=== PATIENT | male | born 1935 | race Caucasian/White ===

== ENCOUNTER 2019-08-11 12:27 | Outpatient (CLI) | payer MEDICARE, MEDICAID, SELFPAY ==
--- NOTE | 2019-08-11 13:30 | XRR_ITS ---
PROCEDURE INFORMATION: Exam: XR Abdomen, 1 View Exam date and time: 08/11/2019 12:45 PM Age: 84 years old Clinical indication: Condition or disease; Kidney or ureter condition; Other: Bladder stone TECHNIQUE: Imaging protocol: XR of the abdomen. Views: Frontal supine view of the abdomen. 1 View. COMPARISON: No relevant prior studies available. FINDINGS: Gastrointestinal tract: Normal. No bowel dilation. Bones/joints: Unremarkable. There is a circumscribed a calcific density in the projection of the proximal collecting system the right kidney at the level of the right L2 transverse process measuring 12.5 mm. This finding likely represents a urinary tract stone. A phleboliths seen in the right lower pelvis XR/XR KUB [id number] IMPRESSION: No acute findings. Calcified stone proximal right renal collecting system.
== END 2019-08-11 12:28 | disposition home or self-care (01) ==
LOC: RAD 12:32
PROVIDERS: Visit Provider Urology
DX: N21.0 Calculus in bladder (principal); N20.0 Calculus of kidney
CPT/HCPCS: 74018; 81001

== ENCOUNTER → 2020-02-02 14:55 | Outpatient (BNVA) | payer MEDICARE, MEDICAID, SELFPAY | PROVIDERS: Visit Provider Urology | DX: N13.8 Other obstructive and reflux uropathy (principal); N40.1 Benign prostatic hyperplasia with lower urinary tract symptoms; R97.20 Elevated prostate specific antigen [PSA]; R39.89 Other symptoms and signs involving the genitourinary system | CPT/HCPCS: 81003 ==

== ENCOUNTER 2020-06-07 12:56 | Outpatient (CLI) | payer MEDICARE, MEDICAID, SELFPAY ==
--- NOTE | 2020-06-07 13:01 | XRR_ITS ---
PROCEDURE INFORMATION: Exam: XR Abdomen Exam date and time: 06/07/2020 1:20 PM Age: 85 years old Clinical indication: Condition or disease; Kidney or ureter condition; Calculus (stone) in ureter; Additional info: Stone follow up TECHNIQUE: Imaging protocol: XR of the abdomen. Views: Frontal supine view of the abdomen. 1 View. COMPARISON: 1. CR XR KUB [id number] 08/11/2019 12:40 PM 2. MT XR KUB [id number] 05/06/2018 8:31:22 AM FINDINGS: Gastrointestinal tract: Normal. No bowel dilation. Bones/joints: There is a 12 mm calcification projecting on the right L3 transverse process. This was previously seen in the periphery of the left side of the abdomen on the old radiograph from 05/06/2018 so that it is not a urinary tract calcification. Some phleboliths are present in the lower pelvis. No definite urinary calcifications are seen. XR/XR KUB [id number] IMPRESSION: 1. A non urinary tract 12 mm calcification projects on the right L3 transverse process. 2. No acute abnormalities are seen in the abdomen.
== END 2020-06-07 12:57 | disposition home or self-care (01) ==
LOC: RAD 12:59
PROVIDERS: Visit Provider Urology
DX: N21.0 Calculus in bladder (principal)
CPT/HCPCS: 74018; 81003

== ENCOUNTER → 2020-10-11 14:30 | Outpatient (BNVA) | payer MEDICARE, MEDICAID, SELFPAY | PROVIDERS: PCP Family Medicine; Visit Provider Urology | DX: N13.8 Other obstructive and reflux uropathy (principal); N40.1 Benign prostatic hyperplasia with lower urinary tract symptoms; C61 Malignant neoplasm of prostate; N21.0 Calculus in bladder; R97.20 Elevated prostate specific antigen [PSA] | CPT/HCPCS: 81003 ==

== ENCOUNTER 2021-01-10 13:20 | Outpatient (CLI) | payer MEDICARE, MEDICAID, SELFPAY | END 2021-01-10 13:21 | disposition home or self-care (01) | LOC: LAB 13:27 | PROVIDERS: PCP Family Medicine; Visit Provider Urology | DX: R97.20 Elevated prostate specific antigen [PSA] (principal) | CPT/HCPCS: 36415; 81003; 84153 ==

== ENCOUNTER 2021-01-23 08:48 | Outpatient (CLI) | payer MEDICARE, MEDICAID, SELFPAY ==
--- NOTE | 2021-01-23 09:20 | CT_ITS ---
WS: [id number] CT ABDOMEN AND PELVIS WITH AND WITHOUT CONTRAST HISTORY: PROSTATE CANCER TECHNIQUE: Unenhanced 5 mm axial imaging first performed through the abdomen. Post contrast imaging t hrough the abdomen and pelvis. Oral contrast has been provided. Sagittal and coronal reformats are s ubmitted. All CT scans at [facility] use at least one of these dose optimization techniques: automated exposure control; mA and/or kV adjustment per patient size (includes targeted exams where d ose is matched to clinical indication); or iterative reconstruction. CONTRAST: Omnipaque 300; 95 mL IV. DLP: 3271.06 mGy.cm COMPARISON: 03/04/2017 Emphysematous changes with atelectasis and scarring at the lung bases. No nodule or pneumonia. Heart size is normal. No pericardial effusion. No hiatal hernia. Liver, spleen, gallbladder, pancreas and adrenal glands are negative. Normal common bile duct and hightower creatic duct. Moderate atherosclerotic plaque within the aorta. No ascites. RIGHT kidney: Normal size kidney with mild perinephric stranding. No stone or solid mass. There are a few scattered hypodensities which are probably cysts. The largest in the mid kidney measures 10 mm. Normal size RIGHT ureter. LEFT kidney: Normal size kidney with perinephric stranding. Several small adjacent cysts in the lower kidney with the largest measuring 18 mm. No solid mass or obstruction. Normal ureter. Urinary bladder is well distended. There is a lobulated soft tissue mass at the base of the urinary b ladder which is contiguous with the prostate gland. Prostate extends over length of 7.0 cm x 4.5 x 5. 5 cm. The LEFT ureter enters through a soft tissue mass extending from the prostate gland but is not obstructing at this time. Retrocrural 7 mm lymph node. Numerous retroperitoneal lymph nodes are identified. Beginning at the le oliver of the renal veins bilateral paraaortic, aortocaval and retrocaval lymph nodes are identified. La rgest lymph node measures 16 mm and is just anterior to the distal IVC. Additional lymph nodes extend along the common and external iliac arteries. The largest lymph node measuring 17 mm along the RIGHT common iliac artery. Bilateral obturator lymph nodes measure up to 14 mm in diameter. Small deep ing uinal lymph nodes are less than a centimeter. No osteoblastic or osteolytic bone disease. 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 No ascites in the pelvis. CT/CT abdomen pelvis wo/w [id number] IMPRESSION: 1. Enlarged heterogeneous prostate gland measures 7.0 x 4.5 x 5.5 cm. 2. LEFT ureter courses through soft tissue invasion by the prostate gland but no obstruction at this time. 3. Extensive adenopathy within the abdomen and pelvis. Lymph nodes involve the retrocrural space, retroperitoneal, iliac chains, obturator and deep inguinal regions. 4. No osteoblastic changes noted within the bones. 5. No renal mass or obstruction. 6. Moderate atherosclerosis aorta.
--- NOTE | 2021-01-23 09:30 | NM_ITS ---
WS: [id number] NUCLEAR MEDICINE WHOLE BODY BONE SCAN HISTORY: PROSTATE CANCER COMPARISON: None available. TECHNIQUE: The patient was injected with 25.6 mCi of Technetium 99m HDP and serial whole-body scintig david have been performed with anterior and posterior images. Very minimal increased uptake in what is probably T1 or C7. No intense uptake throughout the axial [place]. Uptake within the spine and pelvis is normal. Mild degenerative changes at the AC joints and knee joints. Soft tissue and renal uptake. NM/NM bone scan whole body* [id number] IMPRESSION: No evidence for metastatic bone disease.
[2021-01-23 10:22] LABS: Blood Urea Nitrogen 14 mg/dL (8-23)
== END 2021-01-23 08:49 | disposition home or self-care (01) ==
LOC: RAD 08:55
PROVIDERS: PCP Family Medicine; Visit Provider Urology
DX: C61 Malignant neoplasm of prostate (principal); R97.20 Elevated prostate specific antigen [PSA]; N40.0 Benign prostatic hyperplasia without lower urinary tract symptoms; I70.0 Atherosclerosis of aorta
CPT/HCPCS: 74178; 78306; 82565; 84153; 84520; A9561

== ENCOUNTER 2021-08-01 14:13 | Outpatient (CLI) | payer MEDICARE, MEDICAID, SELFPAY | END 2021-08-01 14:14 | disposition home or self-care (01) | LOC: LAB 14:17 | PROVIDERS: PCP Family Medicine; Visit Provider Urology | DX: R97.20 Elevated prostate specific antigen [PSA] (principal); N40.1 Benign prostatic hyperplasia with lower urinary tract symptoms; N13.8 Other obstructive and reflux uropathy; R39.89 Other symptoms and signs involving the genitourinary system; C61 Malignant neoplasm of prostate | CPT/HCPCS: 36415; 81003; 84153; 99214 ==

== ENCOUNTER → 2021-08-18 09:25 | Outpatient (BNVA) | payer MEDICARE, MEDICAID, SELFPAY | PROVIDERS: PCP Family Medicine; Visit Provider Urology | DX: R97.20 Elevated prostate specific antigen [PSA] (principal); R39.89 Other symptoms and signs involving the genitourinary system | CPT/HCPCS: 55700; 88305; J1580 ==

== ENCOUNTER 2021-09-03 20:38 | Inpatient (IN) | payer MEDICARE, MEDICAID, SELFPAY ==
[2021-09-03 21:14] VITALS: BP 175/80; PULSE 76; RESP 18; TEMP 36.9; O2SAT 96; BMI 31.7
--- NOTE | 2021-09-03 22:47 | CTR_ITS ---
PROCEDURE INFORMATION: Exam: CT Abdomen And Pelvis Without Contrast Exam date and time: 09/03/2021 11:45 PM Age: 86 years old Clinical indication: Patient HX: C/O urinary retention; Additional info: Urinary retention, pelvic pain TECHNIQUE: Imaging protocol: Computed tomography of the abdomen and pelvis without contrast. Radiation optimization: All CT scans at this facility use at least one of these dose optimization techniques: automated exposure control; mA and/or kV adjustment per patient size (includes targeted exams where dose is matched to clinical indication); or iterative reconstruction. COMPARISON: CT abdomen pelvis wo/w [id number] 01/23/2021 10:32 AM RADIATION DOSE METRICS: Total DLP (mGy-cm): 1186.43 FINDINGS: Lungs: Bibasilar atelectasis. Heart: Small pericardial effusion measuring 9.5 mm in thickness. Liver: Normal. No mass. Gallbladder and bile ducts: Cholelithiasis. Pancreas: Normal. No ductal dilation. Spleen: Normal. No splenomegaly. Adrenal glands: Normal. No mass. Kidneys and ureters: Moderate to severe hydronephrosis and hydroureter with diffuse urinary bladder wall thickening and and enlarged prostate gland, perhaps reflecting sequelae of chronic outflow obstruction. Stomach and bowel: Unremarkable. No obstruction. No mucosal thickening. Appendix: No evidence of appendicitis. Intraperitoneal space: Unremarkable. No free air. No significant fluid collection. Vasculature: Unremarkable. No abdominal aortic aneurysm. Lymph nodes: Scattered prominent periaortic and retrocrural lymph nodes measuring up to 17 mm, nonspecific. Urinary bladder: Tse catheter in the urinary bladder. Reproductive: See Kidneys and ureters finding. Bones/joints: Unremarkable. No acute fracture. Soft tissues: Unremarkable. CT/CT kidney stone [id number] IMPRESSION: 1. Moderate to severe hydronephrosis and hydroureter with diffuse urinary bladder wall thickening and and enlarged prostate gland, perhaps reflecting sequelae of chronic outflow obstruction. 2. Tse catheter in the urinary bladder. 3. Scattered prominent periaortic and retrocrural lymph nodes measuring up to 17 mm, nonspecific. 4. Bibasilar atelectasis. 5. Small pericardial effusion measuring 9.5 mm in thickness. 6. Cholelithiasis.
[2021-09-03 23:07] LABS: Basophils # 0.1 10^3/uL (0.0-0.1); Basophils % 0.8 %; Eosinophils # 0.1 10^3/uL (0.0-0.8); Eosinophils % 1.4 %; Hematocrit 37.8 % (42.0-52.0); Hemoglobin 12.7 g/dL (11.7-16.6); Lymphocytes # 1.2 10^3/uL (0.8-4.8); Mean Corpuscular HGB Conc 33.6 g/dL (30.0-36.0); Mean Corpuscular Hemoglobin 31.8 pg (28.0-34.0); Mean Corpuscular Volume 94.5 fl (80-94); Mean Platelet Volume 8.6 fL (7.4-10.4); Monocytes # 0.6 10^3/uL (0.2-0.9); Monocytes % 9.2 %; Neutrophils # 4.46 10^3/uL (1.8-7.7); Neutrophils % 69.3 %; Nucleated Red Blood Cells % 0 %; Platelet Count 188 10^3/cmm (130-400); Red Cell Distribution Width 12.5 % (12.1-15.1); White Blood Count 6.4 10^3/uL (4.0-10.0)
[2021-09-03 23:11] LABS: Add Urine Microscopic? NO; Charge for UA Resulting for Rev
--- NOTE | 2021-09-03 23:12 | PC.NURSE ---
bladder scan done @ 2245 and shownt o have >[address] Dhillon notified and will place hou
--- NOTE | 2021-09-03 23:14 | PC.NURSE ---
ameya clamped @ 2306 due to 1000 ml return. provider notified and will unclamp @ 6268
[2021-09-03 23:16] LABS: Bilirubin Urine Neg (Negative); Blood Urine Neg (Negative); Glucose Urine UA Norm (Normal); Ketones Urine Negative (Negative); Leukocyte Esterase Urine Negative (Negative); Nitrate Urine Negative (Negative); Protein Urine Neg (Negative); Urine Appearance Clear (CLEAR); Urine Color Yellow (Yellow); Urobilinogen Urine Norm (Negative); pH Urine 5 (5-7)
[2021-09-03 23:32] LABS: Alanine Aminotransferase 10 U/L (0-41); Albumin Level 3.9 g/dL (3.5-5.2); Alkaline Phosphatase 88 IU/L (40-130); Anion Gap 24.1 (5-19); Aspartate Amino Transferase 9 U/L (0-40); Blood Urea Nitrogen 74 mg/dL (8-23); C Reactive Protein 14.1 mg/L (0.0-4.9); Calcium 8.6 mg/dL (8.5-10.5); Carbon Dioxide 14 mmol/L (22-29); Chloride 106 mmol/L (98-107); Globulin 3.5 g/dL (1.3-4.6); Glucose 104 mg/dL (65-115); Magnesium 2.5 mg/dL (1.7-2.3); Osmolality Calculated 308 mOsm/kg (285-295); Phosphorus 6.1 mg/dL (2.5-4.5); Potassium 6.1 mmol/L (3.5-5.1); Sodium 138 mmol/L (136-145); Total Bilirubin 0.5 mg/dL (0.15-1.2); Total Protein 7.4 g/dL (6.6-8.7)
[2021-09-04] VITALS (45 sets, daily range): BP systolic 133–197; BP diastolic 63–91; PULSE 65–97; RESP 14–24; TEMP 36.7–36.9; O2SAT 91–97
--- NOTE | 2021-09-04 00:09 | PC.NURSE ---
Patient's hou unclamped at midnight. Patient's bladder emptied 350mLs giving a total output of 1350.
--- NOTE | 2021-09-04 01:12 | ED_ITS ---
HPI - Male Genitourinary General: Chief complaint: Urogenital-Male Stated complaint: unable to urinate Time Seen by Provider: 09/03/21 22:29 Source: patient History of Present Illness: 86-year-old gentleman presents to the emergency department not feeling well. He notes that he has not been able to urinate since sometime yesterday. He has a history of prostate disease. He is noted increased leg swelling, and shortness of breath since yesterday as well. He denies fever. He has pelvic pain. MD Complaint: other Onset (ago): hour(s) Duration: constant Location: right flank, left flank and abdomen Relieving factors: none Exacerbating factors: none Associated symptoms: Reports nausea, swelling and urinary retention; Deny dysuria, fevers/chills, hematuria or vomiting Review of Systems Const: Denies: fever(s) Card: Denies: chest pain or palpitations Resp: Reports: dyspnea GI: Reports: nausea; Denies: vomiting : Denies: dysuria or hematuria Musc: Reports: back pain Neuro: Denies: headache(s) PFSH ED PFSH: Medical History Abnormal prostate exam Bladder calculus BPH with obstruction/lower urinary tract symptoms Elevated PSA HTN (hypertension) Hyperlipidemia Slow urinary stream Family History Father , at age 68 No problems noted. Mother , at age 85 No problems noted. Social History Smoking and tobacco status: former smoker Alcohol intake: never Adopted: No Caregiver/support person: No Household members: other Marital status: Single Current occupational status: retired History of recent travel: No Physical Exam Const: GENERAL APPEARANCE: cooperative and frail appearing (mildly) HENMT: COMMON NORMALS: normocephalic, atraumatic and Normal external nose present HEAD & SCALP: normocephalic and atraumatic FACE & SINUS: normal facial exam and face symmetric NOSE: Normal external nose present Eye: COMMON NORMALS: Equal, round and reactive pupils present and EOMs intact bilaterally PUPIL: Yes Equal, round and reactive pupils present Neck/C-Spine: GENERAL: Yes trachea midline Chest: CHEST: Yes Symmetrical chest wall rise Resp: COMMON NORMALS: normal respiratory effort, No use of accessory muscles and clear to auscultation bilaterally AUSCULTATION: clear to auscultation bilaterally Cardio: COMMON NORMALS: regular rate and regular rhythm RATE: regular rate RHYTHM: regular rhythm GI: COMMON NORMALS: Soft to palpation PALPATION: Yes Soft to palpation and Yes Tenderness to palpation present (GI) (suprapubic) : BLADDER/KIDNEY EXAM: Yes CVA tenderness bilateral Back/Pelvis: GENERAL BACK: Yes CVA tenderness Extremity: GENERAL: Yes edema (2+) Neuro: JOVANY COMA SCALE: document GCS findings [place] coma scale eye opening: Spontaneous [place] coma scale verbal response: Orientated [place] coma scale motor response: Obey commands [place] coma scale total score: 15 Course Vital Signs: Vital signs: Vital Signs Temperature 98.4 F 09/03/21 21:14 Pulse Rate 71 09/04/21 01:15 Respiratory Rate 18 09/03/21 21:14 Blood Pressure 179/91 09/04/21 01:15 Pulse Oximetry 97 09/04/21 01:15 MDM - Male Medical Decision Making Tse catheter is inserted, with 1000 mL out nearly immediately. It is clamped at that point. Following this, output has been good. CBC is normal. Creatinine is 8.9. It was 0.9 in February. His potassium is 6.1. He also has mild hypermagnesemia and hyperphosphatemia. His BUN is 74. He is given IV f luids. He is also given insulin, dextrose, and Kayexalate. He will be admitted for acute renal failure related to acute urinary retention and hyperkalemia. Hospitalist notified. Lab Data : 09/03/21 23:00 09/03/21 23:00 Radiology Impressions Abdomen/Pelvis CT 09/03/21 22:47 IMPRESSION: 1. Moderate to severe hydronephrosis and hydroureter with diffuse urinary bladder wall thickening and and enlarged prostate gland, perhaps reflecting sequelae of chronic outflow obstruction. 2. Tse catheter in the urinary bladder. 3. Scattered prominent periaortic and retrocrural lymph nodes measuring up to 17 mm, nonspecific. 4. Bibasilar atelectasis. 5. Small pericardial effusion measuring 9.5 mm in thickness. 6. Cholelithiasis. Laboratory Results WBC 6.4 10^3/uL (4.0-10.0) 09/03/21 23:00 RBC 4.00 10^6/uL (4.1-5.3) L 09/03/21 23:00 Hgb 12.7 g/dL (11.7-16.6) 09/03/21 23:00 Hct 37.8 % (42.0-52.0) L 09/03/21 23:00 MCV 94.5 fl (80-94) H 09/03/21 23:00 MCH 31.8 pg (28.0-34.0) 09/03/21 23:00 MCHC 33.6 g/dL (30.0-36.0) 09/03/21 23:00 RDW 12.5 % (12.1-15.1) 09/03/21 23:00 Plt Count 188 10^3/cmm (130-400) 09/03/21 23:00 MPV 8.6 fL (7.4-10.4) 09/03/21 23:00 Neut % (Auto) 69.3 % 09/03/21 23:00 Lymph % (Auto) 19.0 % 09/03/21 23:00 [place] % (Auto) 9.2 % 09/03/21 23:00 Eos % (Auto) 1.4 % 09/03/21 23:00 Baso % (Auto) 0.8 % 09/03/21 23:00 Neut # (Auto) 4.46 10^3/uL (1.8-7.7) 09/03/21 23:00 Lymph # (Auto) 1.2 10^3/uL (0.8-4.8) 09/03/21 23:00 [place] # (Auto) 0.6 10^3/uL (0.2-0.9) 09/03/21 23:00 Eos # (Auto) 0.1 10^3/uL (0.0-0.8) 09/03/21 23:00 Baso # (Auto) 0.1 10^3/uL (0.0-0.1) 09/03/21 23:00 Nucleated RBC % (auto) 0 % 09/03/21 23:00 Nucleated RBCs # 0.0 /100WBC 09/03/21 23:00 Sodium 138 mmol/L (136-145) 09/03/21 23:00 Potassium 6.1 mmol/L (3.5-5.1) H 09/03/21 23:00 Chloride 106 mmol/L (98-107) 09/03/21 23:00 Carbon Dioxide 14 mmol/L (22-29) L 09/03/21 23:00 Anion Gap 24.1 (5-19) H 09/03/21 23:00 BUN 74 mg/dL (8-23) H 09/03/21 23:00 Creatinine 8.9 mg/dL (0.7-1.2) H* 09/03/21 23:00 GFR Calculation Not Reportable 09/03/21 23:00 Glucose 104 mg/dL (65-115) 09/03/21 23:00 Calculated Osmolality 308 mOsm/kg (285-295) H 09/03/21 23:00 Calcium 8.6 mg/dL (8.5-10.5) 09/03/21 23:00 Phosphorus 6.1 mg/dL (2.5-4.5) H 09/03/21 23:00 Magnesium 2.5 mg/dL (1.7-2.3) H 09/03/21 23:00 Total Bilirubin 0.5 mg/dL (0.15-1.2) 09/03/21 23:00 AST 9 U/L (0-40) 09/03/21 23:00 ALT 10 U/L (0-41) 09/03/21 23:00 Alkaline Phosphatase 88 IU/L (40-130) 09/03/21 23:00 C-Reactive Protein 14.1 mg/L (0.0-4.9) H 09/03/21 23:00 Total Protein 7.4 g/dL (6.6-8.7) 09/03/21 23:00 Albumin 3.9 g/dL (3.5-5.2) 09/03/21 23:00 Globulin 3.5 g/dL (1.3-4.6) 09/03/21 23:00 Urine Color Yellow (Yellow) 09/03/21 23:00 Urine Appearance Clear (CLEAR) 09/03/21 23:00 Urine pH 5 (5-7) 09/03/21 23:00 Ur Specific [place] 1.020 (1.005-1.030) 09/03/21 23:00 Urine Protein Neg (Negative) 09/03/21 23:00 Urine Glucose (UA) Norm (Normal) 09/03/21 23:00 Urine Ketones Negative (Negative) 09/03/21 23:00 Urine Blood Neg (Negative) 09/03/21 23:00 Urine Nitrate Negative (Negative) 09/03/21 23:00 Urine Bilirubin Neg (Negative) 09/03/21 23:00 Urine Urobilinogen Norm mg/dL (Negative) 09/03/21 23:00 Ur Leukocyte Esterase Negative (Negative) 09/03/21 23:00 Discharge Plan Discharge Condition: Stable Prescriptions: No Action levofloxacin 500 mg tablet 500 mg PO DAILY Qty: 4 0RF Rx Instructions: Begin day before procedure diazepam 10 mg tablet 10 mg PO ONCE Qty: 1 0RF Rx Instructions: 1 hour before procedure oxycodone-acetaminophen [Percocet] 5-325 mg tablet 1 tab PO ONCE PRN (Reason: pain) 1 Days Qty: 1 0RF Rx Instructions: Take 1 hour before procedure losartan [Cozaar] 100 mg tablet 100 mg PO DAILY 0RF lovastatin 20 mg tablet 20 mg PO DAILY 0RF amlodipine 5 mg tablet 5 mg PO DAILY 0RF aspirin [Adult Low Dose Aspirin] 81 mg tablet,delayed release (DR/EC) 81 mg PO DAILY 0RF Hold Instructions: Dose Change Rx Instructions: on hold finasteride 5 mg tablet See Rx Instructions .ROUTE .COMPLEX Qty: 90 3RF Dose Instruction: TAKE 1 TABLET BY MOUTH DAILY Rx Instructions: TAKE 1 TABLET BY MOUTH DAILY Referrals: Luis Manuel Lawson MD [Primary Care Provider] - Coding Level of Care Code ED [employer] Le[employer] Broker for Chg Fwd Exam Comprehensive
--- NOTE | 2021-09-04 01:16 | ECG_ITS ---
[facility] Test Date: 2021-09-04 Pat Name: Marlon Fuentes Department: Room: Gender: Male Civil Preparedness Coordinator: : 1935 Requested By: Valente Patricia Order Number: [id number] Celestino MD: Fercho Dillard M.D. Measurements Intervals [place] Rate: 70 P: 66 IN: 170 QRS: -41 QRSD: 96 T: 62 QT: 372 QTc: 403 Interpretive Statements SINUS RHYTHM LEFT AXIS DEVIATION [QRS AXIS < -30] No previous ECG available for comparison Electronically Signed On 09-04-2021 8:08:17 CDT by Fercho Dillard M.D. [email or web address]
--- NOTE | 2021-09-04 01:16 | XRR_ITS ---
PROCEDURE INFORMATION: Exam: XR Chest Exam date and time: 09/04/2021 1:21 AM Age: 86 years old Clinical indication: Shortness of breath; Additional info: SOB TECHNIQUE: Imaging protocol: Radiologic exam of the chest. Views: 1 view. COMPARISON: CR Chest 2 views* [id number] 03/04/2017 1:36 PM FINDINGS: Lungs: There are normal lung volumes without interstitial or airspace opacities. Pleural spaces: There are no pleural effusions or pneumothorax. Heart/Mediastinum: The heart size is normal. There is a mildly tortuous thoracic aorta. The trachea is in the midline. Bones/joints: No acute abnormalities. Small degenerative osteophytes are seen throughout the thoracic spine. XR/XR chest 1V portable [id number] IMPRESSION: No chest radiographic evidence of acute cardiopulmonary disease.
[2021-09-04] MEDS: sodium chloride 0.9% 1,000 ML 999 ML IV (01:56)
[2021-09-04] MEDS: dextrose 50% syringe 50 mL IVP ×2 (02:04→17:44)
[2021-09-04] MEDS: insulin regular-human 100 units/1 mL 10 UNIT IVP (02:04)
[2021-09-04] MEDS: sodium polystyrene sulfonate 15 gm/60 mL Btl PO ×2 (02:27→17:45)
--- NOTE | 2021-09-04 03:09 | PC.NURSE ---
Pt assisted with washing his feet, which were covered in mud.
[2021-09-04] MEDS: hyDRALAzine 20 mg/mL INJ 1 mL 5 MG IVP (04:08)
[2021-09-04] MEDS: sodium chloride 0.9% 1,000 ML 75 ML IV (04:08)
[2021-09-04] MEDS: amlodipine 5 mg Tablet PO (04:08)
[2021-09-04] MEDS: heparin 5,000 unit/mL INJ 1 mL 5000 UNIT SUBCUT ×2 (04:08→14:41)
--- NOTE | 2021-09-04 05:19 | P.HP_ITS ---
Providers/Chief Complaint Admitting Physician: Cait Lopez MD Primary Care Provider: Luis Manuel Lawson MD Chief Complaint: unable to urinate History of Present Illness Marlon Fuentes is a 86 year old male with a past medical history of hypertension, recently diagnosed invasive prostatic adenocarcinoma after TRUSP/biopsy on 08/18/21 presenting today with inability to pass urine since 2 days. States that he last passed urine at 2 PM on Saturday. He denies having had any urinary pro blems before then. Denies any hesitancy, dysuria, blood in urine. However patient does appear to be a poor historian overall denying all problems prior to Saturday. Denies any abdominal pain. Tse catheter was placed in the emergency room and immediately drained 1300 cc urine. He was noted to have ANTONIO a creatinine at 9.8 and hyperkalemia with a potassium of 6. He has received insulin dextrose and Kayexalate in the ED and has had A few bowel movements thereafter. Denies any fever chills chest pain dyspnea or palpitations. Review of Systems General: Reports: 10 or more systems reviewed and unremarkable except in HPI and below Const: Denies: fever(s), chills or body aches Eyes: Denies: change in vision, blurry vision or photophobia ENMT: Reports: hoarseness; Denies: throat pain, enlarged tonsils, odynophagia or nasal congestion Card: Denies: chest pain, palpitations, irregular heart rhythm, edema, swelling of feet/ankles, lightheadedness, pre-syncope, dyspnea on exertion or orthopnea Resp: Denies: dyspnea, productive cough, non-productive cough, wheezing, stridor, pain on inspiration, change in phlegm color, hemoptysis or chest congestion GI: Denies: abdominal pain, nausea, vomiting, hematemesis, coffee ground emesi s, dysphagia, heartburn, diarrhea, constipation, GI cramping, change in stool character, hematochezia or melena : Denies: flank pain, dysuria, urinary frequency, urinary urgency, urinary hesitancy or hematuria Musc: Denies: neck pain, back pain, extremity pain, joint swelling, joint warmth or deformity Neuro: Denies: headache(s), numbness in extremities, weakness in extremities, sensory changes, difficulty walking, frequent falls, dizziness, vertigo, behavioral changes, Slurred speech present or seizure-like activity Psych: Denies: anxiety, depression, suicidal ideation or homicidal ideation Endo: Denies: polyuria, polydipsia, tired all the time, cold intolerance or hot flashes Lewis/Lymph: Denies: easy bruising or easy bleeding Medications/Allergies Home Medications Medication Instructions Recorded Confirmed Last Taken Type amlodipine 5 mg tablet 5 mg PO DAILY 08/11/19 08/18/21 Unknown History losartan 100 mg tablet (Cozaar) 100 mg PO DAILY 08/11/19 08/18/21 Unknown History lovastatin 20 mg tablet 20 mg PO DAILY 08/11/19 08/18/21 Unknown History finasteride 5 mg tablet See Rx Instructions .ROUTE 09/30/20 08/18/21 Unknown Rx .COMPLEX #90 tab diazepam 10 mg tablet 10 mg PO ONCE #1 tab 08/01/21 08/18/21 Unknown Rx levofloxacin 500 mg tablet 500 mg PO DAILY #4 tab 08/01/21 08/18/21 Unknown Rx oxycodone-acetaminophen 5 mg-325 1 tab PO ONCE PRN 1 Days #1 tab 08/01/21 08/18/21 Unknown Rx mg tablet (Percocet) aspirin 81 mg tablet,delayed 81 mg PO DAILY 08/18/21 08/18/21 Unknown History release (Adult Low Dose Aspirin) Allergies Allergy/AdvReac Type Severity Reaction Status Date / Time No Known Allergies Allergy Unverified 08/18/21 09:43 PFSH Acute PFSH: Medical History Abnormal prostate exam Bladder calculus BPH with obstruction/lower urinary tract symptoms Elevated PSA HTN (hypertension) Hyperlipidemia Slow urinary stream Family History Father , at age 68 No problems noted. Mother , at age 85 No problems noted. Social History Smoking and tobacco status: former smoker Alcohol intake: never Adopted: No Caregiver/support person: No Household members: other Marital status: Single Current occupational status: retired History of recent travel: No Vitals/I&O/Wt Last Vital Signs Temp 98.3 F 09/04/21 02:40 Pulse 73 09/04/21 05:00 Resp 21 H 09/04/21 05:00 BP 180/75 09/04/21 05:00 Pulse Ox 96 09/04/21 05:00 09/03/21 09/03/21 09/04/21 14:59 22:59 06:59 Intake Total 1000 / 1000 Output Total 600 / 600 Balance 400 / 400 Weight last 48 hrs Weight 96.479 kg Weight 97.432 kg Physical Exam Narrative: GEN: Awake, alert and oriented, no acute distress CVS: S1S2 N RS: CTA B/L all areas Abd: Soft, nt/nd , bs+ ACLS SPECIALIST: no focal neuro deficits ext: mild LE edema Urinary Catheter Management: Tse Latex Free: Cath Placed During This Visit: yes Reason for Continuing Indwelling Catheter: Acute Urinary Retention or Obstruction Urinary Catheter Date of Insertion: 09/03/21 Urinary Catheter Time of Insertion: 23:00 Data : 09/03/21 23:00 09/04/21 05:20 Other Labs: Radiology Impressions Abdomen/Pelvis CT 09/03/21 22:47 IMPRESSION: 1. Moderate to severe hydronephrosis and hydroureter with diffuse urinary bladder wall thickening and and enlarged prostate gland, perhaps reflecting sequelae of chronic outflow obstruction. 2. Tse catheter in the urinary bladder. 3. Scattered prominent periaortic and retrocrural lymph nodes measuring up to 17 mm, nonspecific. 4. Bibasilar atelectasis. 5. Small pericardial effusion measuring 9.5 mm in thickness. 6. Cholelithiasis. Chest X-Ray 09/04/21 01:16 IMPRESSION: No chest radiographic evidence of acute cardiopulmonary disease. Laboratory Results WBC 6.4 10^3/uL (4.0-10.0) 09/03/21 23:00 RBC 4.00 10^6/uL (4.1-5.3) L 09/03/21 23:00 Hgb 12.7 g/dL (11.7-16.6) 09/03/21 23:00 Hct 37.8 % (42.0-52.0) L 09/03/21 23:00 MCV 94.5 fl (80-94) H 09/03/21 23:00 MCH 31.8 pg (28.0-34.0) 09/03/21 23:00 MCHC 33.6 g/dL (30.0-36.0) 09/03/21 23:00 RDW 12.5 % (12.1-15.1) 09/03/21 23:00 Plt Count 188 10^3/cmm (130-400) 09/03/21 23:00 MPV 8.6 fL (7.4-10.4) 09/03/21 23:00 Neut % (Auto) 69.3 % 09/03/21 23:00 Lymph % (Auto) 19.0 % 09/03/21 23:00 Esmeralda % (Auto) 9.2 % 09/03/21 23:00 Eos % (Auto) 1.4 % 09/03/21 23:00 Baso % (Auto) 0.8 % 09/03/21 23:00 Neut # (Auto) 4.46 10^3/uL (1.8-7.7) 09/03/21 23:00 Lymph # (Auto) 1.2 10^3/uL (0.8-4.8) 09/03/21 23:00 Esmeralda # (Auto) 0.6 10^3/uL (0.2-0.9) 09/03/21 23:00 Eos # (Auto) 0.1 10^3/uL (0.0-0.8) 09/03/21 23:00 Baso # (Auto) 0.1 10^3/uL (0.0-0.1) 09/03/21 23:00 Nucleated RBC % (auto) 0 % 09/03/21 23:00 Nucleated RBCs # 0.0 /100WBC 09/03/21 23:00 Sodium 140 mmol/L (136-145) 09/04/21 05:20 Potassium 5.1 mmol/L (3.5-5.1) 09/04/21 05:20 Chloride 111 mmol/L (98-107) H 09/04/21 05:20 Carbon Dioxide 15 mmol/L (22-29) L 09/04/21 05:20 Anion Gap 19.1 (5-19) H 09/04/21 05:20 BUN 64 mg/dL (8-23) H 09/04/21 05:20 Creatinine 6.8 mg/dL (0.7-1.2) H* 09/04/21 05:20 GFR Calculation Not Reportable 09/04/21 05:20 Glucose 84 mg/dL (65-115) 09/04/21 05:20 Calculated Osmolality 308 mOsm/kg (285-295) H 09/04/21 05:20 Calcium 8.0 mg/dL (8.5-10.5) L 09/04/21 05:20 Phosphorus 6.1 mg/dL (2.5-4.5) H 09/03/21 23:00 Magnesium 2.5 mg/dL (1.7-2.3) H 09/03/21 23:00 Total Bilirubin 0.5 mg/dL (0.15-1.2) 09/04/21 05:20 AST 9 U/L (0-40) 09/04/21 05:20 ALT 10 U/L (0-41) 09/04/21 05:20 Alkaline Phosphatase 84 IU/L (40-130) 09/04/21 05:20 C-Reactive Protein 14.1 mg/L (0.0-4.9) H 09/03/21 23:00 Total Protein 6.8 g/dL (6.6-8.7) 09/04/21 05:20 Albumin 3.6 g/dL (3.5-5.2) 09/04/21 05:20 Globulin 3.2 g/dL (1.3-4.6) 09/04/21 05:20 Urine Color Yellow (Yellow) 09/03/21 23:00 Urine Appearance Clear (CLEAR) 09/03/21 23:00 Urine pH 5 (5-7) 09/03/21 23:00 Ur Specific [place] 1.020 (1.005-1.030) 09/03/21 23:00 Urine Protein Neg (Negative) 09/03/21 23:00 Urine Glucose (UA) Norm (Normal) 09/03/21 23:00 Urine Ketones Negative (Negative) 09/03/21 23:00 Urine Blood Neg (Negative) 09/03/21 23:00 Urine Nitrate Negative (Negative) 09/03/21 23:00 Urine Bilirubin Neg (Negative) 09/03/21 23:00 Urine Urobilinogen Norm mg/dL (Negative) 09/03/21 23:00 Ur Leukocyte Esterase Negative (Negative) 09/03/21 23:00 A&P Assessment and plan (1) ANTONIO (acute kidney injury): Status: Acute (2) Prostate cancer: Status: Acute (3) Hyperkalemia: Status: Acute Plan 86-year-old male with recently diagnosed prostate cancer presenting today with acute urinary obstruction, acute kidney injury and hyperkalemia. Suspect that acute kidney injury with creatinine >9 is related to bladder outlet obstruction from enlarged prostate. Tse placed in the ER, 1300 cc urine obtained. Will keep Tse in place, gentle IV hydration with normal saline at 50 cc an hour, closely monitor for signs of fluid overload. Monitor I/O CT abdomen with evidence of hydronephrosis and hydroureter. No obstructing stones. Received insulin dextrose, Kayexalate in the ER for hyperkalemia with potassium of 6.0. Will repeat at 5 AM. Hyperkalemia most likely related to acute kidney injury. No EKG changes currently, will continue monitoring on telemetry. Uncontrolled hypertension: Hydralazine 5 mg IV push and as needed labetalol ordered. Increase amlodipine to 10 mg p.o. daily. Holding losartan until ANTONIO and hyperkalemia resolved. Attestations Medical Necessity Statement*: Anticipate greater than 2 midnight admission for evaluation and management of acute kidney injury, hyperkalemia and uncontrolled hypertension. 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
--- NOTE | 2021-09-04 06:00 | PC.NURSE ---
Pt appears to be dark complected but pale/sallow.
[2021-09-04 06:01] LABS: Alanine Aminotransferase 10 U/L (0-41); Albumin Level 3.6 g/dL (3.5-5.2); Alkaline Phosphatase 84 IU/L (40-130); Anion Gap 19.1 (5-19); Aspartate Amino Transferase 9 U/L (0-40); Blood Urea Nitrogen 64 mg/dL (8-23); Carbon Dioxide 15 mmol/L (22-29); Chloride 111 mmol/L (98-107); Globulin 3.2 g/dL (1.3-4.6); Glucose 84 mg/dL (65-115); Osmolality Calculated 308 mOsm/kg (285-295); Potassium 5.1 mmol/L (3.5-5.1); Sodium 140 mmol/L (136-145); Total Bilirubin 0.5 mg/dL (0.15-1.2); Total Protein 6.8 g/dL (6.6-8.7)
--- NOTE | 2021-09-04 06:28 | PC.NURSE ---
ED output from catheter not documented
[2021-09-04] MEDS: finasteride 5 mg Tablet PO (09:21)
[2021-09-04] MEDS: amlodipine 10 mg Tablet PO (09:21)
[2021-09-04] MEDS: pantoprazole DR 40 mg Tablet PO (09:21)
[2021-09-04] MEDS: aspirin 81 mg EC Tablet PO (09:21)
[2021-09-04] MEDS: atorvastatin 40 mg Tablet 20 MG PO (09:21)
--- NOTE | 2021-09-04 09:41 | PC.CHAP ---
Pastoral Care Encounter/Spiritual Assessment Type of Contact [] Declined band splitter visit [] Patient/Family/Request visit [] Outpatient visit [] Follow-up visit [] Physician referral [] Code/Alert [x] Routine visit [] Staff referral [] Actively dying [x] Patient sleeping [] Family support [] [] Out of room [] Palliative care [] [] Receiving care in room [] Pre-surgical visit [] Trauma [] Long length of stay [x] ICU visit [] Other: Relational/Emotional Strength [] Patient feels connected with others/family/visitors/staff [] Distress [] Loneliness/isolation [] Abandonment Spirituality of Patient [] Person of Cherry [] Attends Confucianist of their Cherry [] Believes in Prayer [] Reads Bible or Episcopalian materials [] There are Spiritual issues to be addressed Railroad Dining Car Stewardess Interventions [x] Prayer [] Active listening [] Non-anxious presence [] Spiritual/emotional support [] Crisis/trauma care [] Spiritual counseling [] Bereavement support [] Provided bereavement packet [] Provided Bible/devotional materials [] Provided toy/stuffed animal, coloring book to patient or family member [] Provided Communion [] Anointing/[place] [] Salvation [x] Completed spiritual assessment [] Other: Impact on Illness or Injury [] Angry [] Fearful [] Anxious [] Often cries [] Exhaustion [] Unable to work [] Unable to attend religious [] Unable to walk/stand [] Unable to read [] Unable to drive [] Unable to eat/drink [] Unable to sleep [] Unable to be with family [] Patient intubated [] Other: Summary Time spent with patient
--- NOTE | 2021-09-04 10:03 | PM.MISC ---
Miscellaneous Note Purpose of Documentation: Mini Progress Note Note: Patient has been hemodynamically stable overnight. Saturating 96% on room air. Creatinine this morning 6.8. Improved from 8.3. Tse draining freely. 1200 urine output since admission. Continue gentle IV hydration Check BMP, VBG in afternoon. Rest of management as per admission HnP document.
[2021-09-04] MEDS: sodium bicarbonate 650 mg Tablet PO ×2 (16:31→20:30)
[2021-09-04 16:34] LABS: Anion Gap 17.5 (5-19); Blood Urea Nitrogen 57 mg/dL (8-23); Calcium 7.9 mg/dL (8.5-10.5); Carbon Dioxide 16 mmol/L (22-29); Chloride 113 mmol/L (98-107); Glucose 108 mg/dL (65-115); Osmolality Calculated 308 mOsm/kg (285-295); Potassium 5.5 mmol/L (3.5-5.1); Sodium 141 mmol/L (136-145)
[2021-09-04 16:36] LABS: Base Excess VBG -10.2 mmol/L (-3.0-3.0); Blood Gas Sample Type Arterial; HCO3 VBG 15.1 mmol/L (24-28); PCO2 VBG 30.9 mmHg (41-51); PO2 VBG 61.3 mmHg (25-40); Venous Blood Gas Hematocrit 36.5 % (42-52)
--- NOTE | 2021-09-04 17:23 | P.CONIM_ITS ---
Providers/Reason For Consult Consulting Physician/Specialty*: Urology/Bond Reason for Consult*: Urinary retention/renal failure Requesting Physician: Dr. 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 For years he refused prostate biopsy but more recently elected to do so after his PSA had increased to almost 350 and a fairly rapid rate. Prostate biopsy was performed on 08/18/2021 and demonstrated large volume Evelyn 4+3, 3+4 throughout the prostate. 2 days prior to his admission he developed difficulty voiding and was only able to dribble a small amount by the time he came in. Catheter was placed in the emergency department yielding 1300 cc. Creatinine was found to be elevated at 8.9. CT scan: Bilateral hydronephrosis, thickened bladder wall, and thickening of the posterior bladder wall near the trigone. Hydroureter extended down to the UVJ bilaterally. CT scan also demonstrated significant pelvic lymphadenopathy in the obturator fossa area as well as Ultib ro periaortic nodes. Admitted for further evaluation and treatment. Since admission he has experienced significant diuresis as well as improving creatinine. Creatinine has decreased to 4.9 as of 09/04/2021. Alkaline phosphatase on admission was 88. Review of Systems Const: Reports: malaise; Denies: fever(s) or chills Eyes: Denies: eye discharge or eye redness ENMT: Denies: hoarseness Card: Reports: edema; Denies: chest pain Resp: Denies: productive cough or wheezing : Reports: difficulty urinating (Profound urinary retention); Denies: flank pain Musc: Denies: back pain Skin/Breast: Denies: erythema or jaundice Neuro: Denies: confusion or behavioral changes Psych: Denies: anxiety or depression Endo: Denies: polyuria or flushing Lewis/Lymph: Denies: easy bruising or easy bleeding All/Imm: Denies: urticaria or throat swelling Medications/Allergies Home Medications Medication Instructions Recorded Confirmed Last Taken Type amlodipine 5 mg tablet 5 mg PO BEDTIME 08/11/19 09/04/21 Unknown History losartan 100 mg tablet (Cozaar) 100 mg PO BEDTIME 08/11/19 09/04/21 Unknown Hi story lovastatin 20 mg tablet 20 mg PO BEDTIME 08/11/19 09/04/21 Unknown History aspirin 81 mg tablet,delayed 81 mg PO QAM 08/18/21 09/04/21 Unknown History release (Adult Low Dose Aspirin) finasteride 5 mg tablet 5 mg PO QAM 09/04/21 09/04/21 Unknown History Allergies Allergy/AdvReac Type Severity Reaction Status Date / Time No Known Allergies Allergy Verified 09/04/21 08:17 Current Medications Generic Name Dose Route Start Last Admin Trade Name Freq PRN Reason Stop Dose Admin Amlodipine Besylate 10 mg 09/04/21 09:00 09/04/21 09:21 Amlodipine 10 Mg Tablet PO 10 mg DAILY NEDA Administration Aspirin 81 mg 09/04/21 09:00 09/04/21 09:21 Aspirin 81 Mg Ec Tablet PO 81 mg DAILY NEDA Administration Atorvastatin Calcium 20 mg 09/04/21 09:00 09/04/21 09:21 Atorvastatin 40 Mg Tablet PO 20 mg DAILY NEDA Administration Finasteride 5 mg 09/04/21 09:00 09/04/21 09:21 Finasteride 5 Mg Tablet PO 5 mg DAILY NEDA Administration Heparin Sodium (Porcine) 5,000 unit 09/04/21 03:30 09/05/21 03:47 Heparin 5,000 Unit/Ml Inj 1 Ml SUBCUT 5,000 unit Q12H NEDA Administration Sodium Chloride 1,000 mls @ 50 mls/hr 09/04/21 03:15 09/05/21 03:48 Sodium Chloride 0.9% IV 50 mls/hr .Q20H NEDA Administration Pantoprazole Sodium 40 mg 09/04/21 09:00 09/04/21 09:[address] 40 Mg Tablet PO 40 mg DAILY NEDA Administration Sodium Bicarbonate 650 mg 09/04/21 21:00 09/04/21 20:30 Sodium Bicarbonate 650 Mg Tablet PO 650 mg QID NEDA Administration PFSH Acute PFSH: Medical History Abnormal prostate exam Bladder calculus BPH with obstruction/lower urinary tract symptoms Elevated PSA HTN (hypertension) Hyperlipidemia Slow urinary stream Family History Father , at age 68 No problems noted. Mother , at age 85 No problems noted. Social History Smoking and tobacco status: former smoker Alcohol intake: never Adopted: No Caregiver/support person: No Household members: other Marital status: Single Current occupational status: retired History of recent travel: No Vitals/I&O/Wt Last Vital Signs Temp 98.6 F 09/05/21 04:00 Pulse 59 L 09/05/21 06:00 Resp 17 09/05/21 04:00 BP 182/70 09/05/21 04:00 Pulse Ox 95 09/05/21 04:00 09/04/21 09/05/21 09/05/21 22:59 06:59 14:59 Intake Total 663.85 / 890.10 364.167 / 1254.267 Output Total 400 / 1075 800 / 1875 Balance 263.85 / -184.90 -435.833 / -620.733 Weight last 48 hrs Weight 223 lb 1.6 oz Weight 212 lb 11.2 oz Weight 214 lb 12.8 oz Physical Exam Const: COMMON NORMALS: no acute distress, alert and well nourished GENERAL APPEARANCE: well kempt and well developed ORIENTATION/CONSCIOUSNESS: not confused HENMT: COMMON NORMALS: normocephalic and atraumatic HEAD & SCALP: normocephalic and atraumatic Eye: COMMON NORMALS: conjunctivae normal and no scleral icterus CONJUNCTIVA: Yes conjunctivae normal Neck/C-Spine: COMMON NORMALS: full ROM GENERAL: Yes normal visual inspection Lymph: OTHER: No palpable lymphadenopathy Resp: COMMON NORMALS: normal respiratory effort EFFORT & INSPECTION: No labored and No Actively coughing Cardio: COMMON NORMALS: regular rate and regular rhythm RATE: regular rate RHYTHM: regular rhythm GI: COMMON NORMALS: Normal to inspection, nondistended, normoactive bowel sounds present and Soft to palpation PALPATION: Yes Soft to palpation : COMMON NORMALS: Yes no CVA tenderness, Yes normal external exam, Yes Testes normal and Yes scrotum normal BLADDER/KIDNEY EXAM: Yes no CVA tenderness Back/Pelvis: COMMON NORMALS: no CVA tenderness Extremity: NARRATIVE EXTREMITY EXAM: Lower extremity pitting edema apparently improved Neuro: COMMON NORMALS: no focal motor deficits SENSORIUM/ORIENTATION: Yes alert Psych: COMMON NORMALS: mental status grossly normal APPEARANCE: Yes grossly normal and Yes well kempt ATTITUDE: Yes calm and Yes engaged Skin: COMMON NORMALS: no rashes or lesions noted and no jaundice GENERAL SKIN EXAM: no rashes or lesions noted Urinary Catheter Management: Tse Latex Free: Cath Placed During This Visit: yes Reason for Continuing Indwelling Catheter: Acute Urinary Retention or Obstruction Urinary Catheter Date of Insertion: 09/03/21 Urinary Catheter Time of Insertion: 23:00 Data : 09/05/21 05:00 09/05/21 05:00 CT Abd/Pel: My impression: I think there is actually extensive lymphadenopathy including bilateral large lymph nodes in the obturator space. Significant lymphadenopathy extending along periaortic chain at least up to the renal vessels. A&P Assessment and plan (1) Obstructive uropathy: Secondary to bladder outlet obstruction. Given the substantial reduction in creatinine so far with Tse catheter placement is only treatment I do not think that there is in addition bilateral ureteral obstruction. 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 Status: Acute (3) BPH with obstruction/lower urinary tract symptoms: Status: Acute Plan 1. Continue Tse cath for 2 weeks and then voiding trial, SCIC training as outpatient in clinic. 2. 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 Start BICALUTAMIDE Coding Level of Care Code Acute Power Generation Technician for [facility] Diagnoses BPH with obstruction/lower urinary tract symptoms N40.1; N13.8 Obstructive uropathy N13.9 Prostate cancer metastatic to intrapelvic lymph node C61; C77.5
[2021-09-04] MEDS: calcium gluconate 0.9% NaCL 1 GM/50 ML PREMIX IV (17:44)
[2021-09-04] MEDS: insulin regular-human 10 UNIT in SYRINGE 1 EACH IVP (17:45)
--- NOTE | 2021-09-04 19:00 | PC.NURSE ---
Bedside report given to SUNITHA Barahona at this time.
--- NOTE | 2021-09-04 19:42 | PM.CONSULT ---
Providers/Reason For Consult Consulting Physician/Specialty*: Ayaka An DO, telenephrology Reason for Consult*: Acute kidney injury Attending Physician: Agnes Zayas MD Primary Care Provider: Luis Manuel Lawson MD History of Present Illness History of Present Illness Marlon Fuentes is a 86 year old male presenting with chief complaint of unable to urinate. Recent diagnosis prostate cancer. TRUSP/biopsy 08/18/21 Tse placed in ER 1300 ml in bladder. Medications/Allergies Home Medications Medication Instructions Recorded Confirmed Last Taken Type amlodipine 5 mg tablet 5 mg PO BEDTIME 08/11/19 09/04/21 Unknown History losartan 100 mg tablet (Cozaar) 100 mg PO BEDTIME 08/11/19 09/04/21 Unknown History lovastatin 20 mg tablet 20 mg PO BEDTIME 08/11/19 09/04/21 Unknown History aspirin 81 mg tablet,delayed 81 mg PO QAM 08/18/21 09/04/21 Unknown History release (Adult Low Dose Aspirin) finasteride 5 mg tablet 5 mg PO QAM 09/04/21 09/04/21 Unknown History Allergies Allergy/AdvReac Type Severity Reaction Status Date / Time No Known Allergies Allergy Verified 09/04/21 08:17 Current Medications Generic Name Dose Route Start Last Admin Trade Name Freq PRN Reason Stop Dose Admin Amlodipine Besylate 10 mg 09/04/21 09:00 09/04/21 09:21 Amlodipine 10 Mg Tablet PO 10 mg DAILY NEDA Administration Aspirin 81 mg 09/04/21 09:00 09/04/21 09:21 Aspirin 81 Mg Ec Tablet PO 81 mg DAILY NEDA Administration Atorvastatin Calcium 20 mg 09/04/21 09:00 09/04/21 09:21 Atorvastatin 40 Mg Tablet PO 20 mg DAILY NEDA Administration Finasteride 5 mg 09/04/21 09:00 09/04/21 09:21 Finasteride 5 Mg Tablet PO 5 mg DAILY NEDA Administration Heparin Sodium (Porcine) 5,000 unit 09/04/21 03:30 09/04/21 14:41 Heparin 5,000 Unit/Ml Inj 1 Ml SUBCUT 5,000 unit Q12H NEDA Administration Sodium Chloride 1,000 mls @ 50 mls/hr 09/04/21 03:15 09/04/21 07:09 Sodium Chloride 0.9% IV 50 mls/hr .Q20H NEDA Infusion Pantoprazole Sodium 40 mg 09/04/21 09:00 09/04/21 09:[address] 40 Mg Tablet PO 40 mg DAILY NEDA Administration Sodium Bicarbonate 650 mg 09/04/21 16:15 09/04/21 17:28 Sodium Bicarbonate 650 Mg Tablet PO Not Given BID NEDA PFSH Acute PFSH: Medical History Abnormal prostate exam Bladder calculus BPH with obstruction/lower urinary tract symptoms Elevated PSA HTN (hypertension) Hyperlipidemia Slow urinary stream Family History Father , at age 68 No problems noted. Mother , at age 85 No problems noted. Social History Smoking and tobacco status: former smoker Alcohol intake: never Adopted: No Caregiver/support person: No Household members: other Marital status: Single Current occupational status: retired History of recent travel: No Vitals/I&O/Wt Last Vital Signs Temp 98.0 F 09/04/21 15:37 Pulse 80 09/04/21 15:37 Resp 14 09/04/21 15:37 BP 161/73 09/04/21 15:37 Pulse Ox 94 09/04/21 15:37 09/04/21 09/04/21 09/04/21 06:59 14:59 22:59 Intake Total 1000 / 1000 226.25 / 226.25 240 / 466.25 Output Total 950 / 950 675 / 675 400 / 1075 Balance 50 / 50 -448.75 / -448.75 -160 / -608.75 Weight last 48 hrs Weight 96.479 kg Weight 97.432 kg Physical Exam Urinary Catheter Management: Tse Latex Free: Cath Placed During This Visit: yes Reason for Continuing Indwelling Catheter: Acute Urinary Retention or Obstruction Urinary Catheter Date of Insertion: 09/03/21 Urinary Catheter Time of Insertion: 23:00 Data : 09/03/21 23:00 09/04/21 16:08 Other Labs: phos 6.1 serum Cr 0.9 mg/dL 01/2021 CT Abd/Pel: Radiologist's impression: 09/03/21: Kidneys and ureters: Moderate to severe hydronephrosis and hydroureter with diffuse urinary bladder wall thickening and and enlarged prostate gland, perhaps reflecting sequelae of chronic outflow obstruction. ABG Interpretation 1: 09/04/21 16:08 VBG pH 7.30 L VBG pCO2 30.9 L VBG pO2 61.3 H VBG HCO3 15.1 L VBG Base Excess -10.2 L My Interpretation: primary metabolic acidosis Other data: CT with Contrast 2020: RIGHT kidney: Normal size kidney with mild perinephric stranding. No stone or solid mass. There are a few scattered hypodensities which are probably cysts. The largest in the mid kidney measures 10 mm. Normal size RIGHT ureter. LEFT kidney: Normal size kidney with perinephric stranding. Several small adjacent cysts in the lower kidney with the largest measuring 18 mm. No solid mass or obstruction. Normal ureter. Urinary bladder is well distended. There is a lobulated soft tissue mass at the base of the urinary bladder which is contiguous with the prostate gland. Prostate extends over length of 7.0 cm x 4.5 x 5.5 cm. The LEFT ureter enters through a soft tissue mass extending from the prostate gland but is not obstructing at this time. A&P Assessment and plan (1) Acute kidney injury: Status: Acute Plan 1. Acute kidney injury due to obstruction. Enlarged prostate causing bladder outlet obstruction. Also concern for left ureter obstruction based on CT from 2020. He has good urine output a rapidly falling creatinine. 2. Hyperkalemia, metabolic acidosis due to distal renal tubular acidosis due to obstruction, as well as renal failure and use of ARB until admission. 3. Hyperphosphatemia due to renal failure. 4. Metastatic prostate cancer. Recommend: Continue IVF hydration, oral sodium bicarbonate. low potassium diet. Continue to hold ARB. Renal ultrasound tomorrow. Discuss with urology. Consult Attestations Medical Necessity Statement: see above Time Spent in Patient Care: 16 - 35 minutes Coding Level of Care Code Acute Order Entry Representative for [facility] Gus Diagnoses Acute kidney injury N17.9
[2021-09-05] VITALS (9 sets, daily range): BP systolic 149–182; BP diastolic 63–83; PULSE 59–75; RESP 13–18; TEMP 36.4–37; O2SAT 94–96
--- NOTE | 2021-09-05 03:31 | PC.NURSE ---
Addendum entered by Brooklyn Arellano LPN 09/05/21 03:36: Dr. Topete gave orders to manually irrigate catheter Q-shift unless you see more bleeding or clots then let him know. Original Note: RELIEF OPERATOR notified this nurse of hematuria in patients catheter tubing, this nurse inspected line it is still free flowing. Doctor notified.
[2021-09-05] MEDS: heparin 5,000 unit/mL INJ 1 mL 5000 UNIT SUBCUT ×2 (03:47→15:15)
[2021-09-05] MEDS: sodium chloride 0.9% 1,000 ML 50 ML IV (03:48)
[2021-09-05 05:13] LABS: Basophils % 0.7 %; Eosinophils # 0.1 10^3/uL (0.0-0.8); Eosinophils % 1.7 %; Hematocrit 33.2 % (42.0-52.0); Hemoglobin 10.9 g/dL (11.7-16.6); Lymphocytes # 1.1 10^3/uL (0.8-4.8); Lymphocytes % 18.1 %; Mean Corpuscular HGB Conc 32.8 g/dL (30.0-36.0); Mean Corpuscular Hemoglobin 30.5 pg (28.0-34.0); Mean Platelet Volume 8.8 fL (7.4-10.4); Monocytes # 0.6 10^3/uL (0.2-0.9); Monocytes % 10.6 %; Neutrophils # 4.11 10^3/uL (1.8-7.7); Neutrophils % 68.4 %; Nucleated Red Blood Cells % 0 %; Platelet Count 188 10^3/cmm (130-400); Red Blood Count 3.57 10^6/uL (4.1-5.3); Red Cell Distribution Width 12.3 % (12.1-15.1)
[2021-09-05 05:32] LABS: Blood Urea Nitrogen 47 mg/dL (8-23); Carbon Dioxide 18 mmol/L (22-29); Chloride 113 mmol/L (98-107); Glucose 96 mg/dL (65-115); Magnesium 2.1 mg/dL (1.7-2.3); Osmolality Calculated 306 mOsm/kg (285-295); Phosphorus 3.8 mg/dL (2.5-4.5); Sodium 142 mmol/L (136-145)
--- NOTE | 2021-09-05 07:57 | US_ITS ---
WS: [id number] RENAL ULTRASOUND HISTORY: acute kidney injury COMPARISON: CT 09/03/2021 TECHNIQUE: 2-D and color Doppler imaging of the kidney submitted. Right kidney: 11.2 cm x 5.1 cm x 5.6 cm. Normal size kidney. Hydronephrosis described on 09/03/2021 is resolved. No mass. Left kidney: 11.5 cm x 7.3 cm x 6.7 cm. Normal size kidney. There is mild residual dilatation of the LEFT renal pelvis. Prior examination. Th ere is a cyst from the lower pole maximum diameter of 2 cm. Aorta: Not imaged. Urinary Bladder: Tse catheter present in the bladder. There is marked diffuse wall thickening. Blad colleen wall measures up to 2.3 cm. Soft tissue surrounds the Tse catheter balloon. No residual urine. US/US renal BI* [id number] IMPRESSION: 1. Minimal residual LEFT hydronephrosis since 09/03/2021. 2. No RIGHT hydronephrosis. 3. Tse catheter is present in the urinary bladder. There is diffuse bladder wall thickening surrounding the Tse catheter balloon. The wall measures up to 2.3 cm. There is a severe bladder wall thickening. Differential includes neopl asm but more likely hypertrophy from chronic outlet obstruction due to the diff use nature.
--- NOTE | 2021-09-05 08:10 | P.PN_ITS ---
Subjective Subjective: feels better. excellent diuresis. no complaints Medications: Reviewed: Yes Medication Review Details: Current Medications Acetaminophen (Acetaminophen 325 Mg Tablet) 650 mg PO Q6H PRN PRN Reason: Mild/Mod Pain Or Temp >/= 101 Amlodipine Besylate (Amlodipine 10 Mg Tablet) 10 mg PO DAILY [facility] Last Admin: 09/04/21 09:21 Dose: 10 mg Documented by: Aspirin (Aspirin 81 Mg Ec Tablet) 81 mg PO DAILY [facility] Last Admin: 09/04/21 09:21 Dose: 81 mg Documented by: Atorvastatin Calcium (Atorvastatin 40 Mg Tablet) 20 mg PO DAILY [facility] Last Admin: 09/04/21 09:21 Dose: 20 mg Documented by: Bicalutamide (Bicalutamide 50 Mg Tablet) 50 mg PO DAILY@0800 [facility] Finasteride (Finasteride 5 Mg Tablet) 5 mg PO DAILY [facility] Last Admin: 09/04/21 09:21 Dose: 5 mg Documented by: Heparin Sodium (Porcine) (Heparin 5,000 Unit/Ml Inj 1 Ml) 5,000 unit SUBCUT Q12H [facility] Last Admin: 09/05/21 03:47 Dose: 5,000 unit Documented by: Sodium Chloride (Sodium Chloride 0.9%) 1,000 mls @ 50 mls/hr IV .Q20H [facility] Last Admin: 09/05/21 03:48 Dose: 50 mls/hr Documented by: Labetalol HCl (Labetalol 5 Mg/Ml Sdv 20ml) 10 mg IVP ONCE PRN PRN Reason: for SBP >180. Hold for HR < 65 Morphine Sulfate (Morphine 4 Mg/Ml Sdv 1 Ml) 1 mg IVP Q4H PRN PRN Reason: SEVERE PAIN Naloxone HCl (Naloxone 0.4 Mg/Ml Sdv) 0.1 mg IVP Q2M PRN PRN Reason: OPIATERV Ondansetron HCl (Ondansetron 2 Mg/Ml Sdv 2 Ml) 4 mg IVP Q8H PRN PRN Reason: vomiting, or N/V if npo Pantoprazole Sodium (Pantoprazole Dr 40 Mg Tablet) 40 mg PO DAILY [facility] Last Admin: 09/04/21 09:21 Dose: 40 mg Documented by: Sodium Bicarbonate (Sodium Bicarbonate 650 Mg Tablet) 650 mg PO QID [facility] Last Admin: 09/05/21 08:05 Dose: Not Given Documented by: Vitals/I&O/Wt Last Vital Signs Temp 98.6 F 09/05/21 04:00 Pulse 59 L 09/05/21 06:00 Resp 17 09/05/21 04:00 BP 182/70 09/05/21 04:00 Pulse Ox 95 09/05/21 04:00 09/04/21 09/05/21 09/05/21 22:59 06:59 14:59 Intake Total 663.85 / 890.10 364.167 / 1254.267 Output Total 400 / 1075 800 / 1875 Balance 263.85 / -184.90 -435.833 / -620.733 Weight last 48 hrs Weight 101.196 kg Weight 96.479 kg Weight 97.432 kg Physical Exam Narrative: NARD. vs noted heent- nc/at, eomi, anicteric neck supple lungs clear heart- reg abd soft ext no edema neuro- a,a, Urinary Catheter Management: Hou Latex Free: Cath Placed During This Visit: yes Reason for Continuing Indwelling Catheter: Acute Urinary Retention or Obstruction Urinary Catheter Date of Insertion: 09/03/21 Urinary Catheter Time of Insertion: 23:00 Data : 09/05/21 05:00 09/05/21 05:00 A&P Assessment and plan (1) ANTONIO (acute kidney injury): 86 yr old man s/p prostate bx on 08/18/21 w/ Prostate ca. Pt admitted w/ ANTONIO from obstructive uropathy 1. ANTONIO- obstructive uropathy- improving w/ hou -appreciate Dr Bond of urology -CT scan: Bilateral hydronephrosis, thickened bladder wall, and thickening of the posterior bladder wall near the trigone. Hydroureter extended down to the UVJ bilaterally.? CT scan also demonstrated significant pelvic lymphadenopathy in the obturator fossa area as well as Ul tibro periaortic nodes. 2. htn- d/c ivf. if bp remains elevated. can add hydralazine. 3. 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 hyperkalemia improved 5. met acidosis improving 6. phos now normal seen and examine dw/ RN- telehealth visit time spent 30 min Status: Acute Attestations Medical Necessity Statement*: antonio improving, htn Time Spent in Patient Care: 16 - 35 minutes (>than 50% of time spent in counselling and/or direct pt care on unit) . Coding Level of Care Code Acute Manager Mobility for Chg Fwd Diagnoses ANTONIO (acute kidney injury) N17.9
[2021-09-05] MEDS: amlodipine 10 mg Tablet PO (08:19)
[2021-09-05] MEDS: aspirin 81 mg EC Tablet PO (08:19)
[2021-09-05] MEDS: atorvastatin 40 mg Tablet 20 MG PO (08:20)
[2021-09-05] MEDS: pantoprazole DR 40 mg Tablet PO (08:21)
[2021-09-05] MEDS: finasteride 5 mg Tablet PO (08:21)
[2021-09-05] MEDS: sodium bicarbonate 650 mg Tablet PO ×2 (09:31→22:03)
--- NOTE | 2021-09-05 12:45 | PM.PN ---
Subjective Subjective: Urology follow-up: States that he feels better today. Urine remains clear. Catheter functioning well. No abdominal pain or flank pain. Creatinine continues to decrease from 4.9 yesterday to 3.9 today. Represents substantial improvement since his admission of 8.9. Reviewed again with him the importance of maintaining a Tse catheter for bladder decompression with outpatient cystoscopy voiding trial [facility] instruction properly in 2 weeks. We will make arrangements also for oncology follow-up for systemic therapy of metastatic prostate cancer. Started on BICALUTAMIDE today. Vitals/I&O/Wt Last Vital Signs Temp 98.4 F 09/05/21 12:00 Pulse 75 09/05/21 12:00 Resp 16 09/05/21 12:00 BP 149/69 09/05/21 12:00 Pulse Ox 95 09/05/21 12:00 09/04/21 09/05/21 09/05/21 22:59 06:59 14:59 Intake Total 663.85 / 890.10 364.167 / 1254.267 120 / 120 Output Total 400 / 1075 800 / 1875 525 / 525 Balance 263.85 / -184.90 -435.833 / -620.733 -405 / -405 Weight last 48 hrs Weight 223 lb 1.6 oz Weight 212 lb 11.2 oz Weight 214 lb 12.8 oz Physical Exam Const: COMMON NORMALS: no acute distress and patient oriented x3 HENMT: COMMON NORMALS: normocephalic and atraumatic HEAD & SCALP: normocephalic and atraumatic Neck/C-Spine: OTHER: Normal range of motion Resp: OTHER: Nonlabored. No audible wheezes. Good air movement Extremity: OTHER: Good range of motion Neuro: COMMON NORMALS: patient oriented x3 and moves all extremities Psych: COMMON NORMALS: mental status grossly normal and cooperative Skin: COMMON NORMALS: turgor normal and no jaundice GENERAL SKIN EXAM: turgor normal Urinary Catheter Management: Tse Latex Free: Cath Placed During This Visit: yes Reason for Continuing Indwelling Catheter: Acute Urinary Retention or Obstruction Urinary Catheter Date of Insertion: 09/03/21 Urinary Catheter Time of Insertion: 23:00 Data : 09/05/21 05:00 09/05/21 05:00 A&P Assessment and plan (1) Prostate cancer metastatic to intrapelvic lymph node: Status: Acute (2) Bilateral hydronephrosis: Status: Acute (3) Obstructive uropathy: Status: Acute (4) Acute urinary retention: Status: Acute (5) Acute kidney injury: Status: Acute Plan 1. Maintain Tse catheter until follow-up in roughly 2 weeks for voiding trial [facility] cystoscopy. 2. Started BICALUTAMIDE today 3. We will make arrangements for oncology consultation for systemic therapy as outpatient. Attestations Medical Necessity Statement*: See attending Coding Level of Care Code Acute Coordinator Of Placement for g Fwd Diagnoses Prostate cancer metastatic to intrapelvic lymph node C61; C77.5 Bilateral hydronephrosis N13.30 Obstructive uropathy N13.9 Acute urinary retention R33.8 Acute kidney injury N17.9
--- NOTE | 2021-09-05 12:48 | PM.PN ---
Subjective Subjective: Seen this morning. Patient accidentally tugged on his Tse he is having hematuria now. Seen by Dr. Bond Vitals/I&O/Wt Last Vital Signs Temp 98.4 F 09/05/21 12:00 Pulse 75 09/05/21 12:00 Resp 16 09/05/21 12:00 BP 149/69 09/05/21 12:00 Pulse Ox 95 09/05/21 12:00 09/04/21 09/05/21 09/05/21 22:59 06:59 14:59 Intake Total 663.85 / 890.10 364.167 / 1254.267 120 / 120 Output Total 400 / 1075 800 / 1875 525 / 525 Balance 263.85 / -184.90 -435.833 / -620.733 -405 / -405 Weight last 48 hrs Weight 101.196 kg Weight 96.479 kg Weight 97.432 kg Physical Exam Narrative: General: Alert oriented x3, patient seen laying in bed HEENT: Normocephalic, atraumatic, EOMI Cardio: Regular rate rhythm, normal S1-S2 Respiratory: Clear to auscultation bilaterally GI: Abdomen soft, nontender, nondistended, bowel sounds + Extremities: no edema, no cyanosis Urinary Catheter Management: Tse Latex Free: Cath Placed During This Visit: yes Reason for Continuing Indwelling Catheter: Acute Urinary Retention or Obstruction Urinary Catheter Date of Insertion: 09/03/21 Urinary Catheter Time of Insertion: 23:00 Data : 09/05/21 05:00 09/05/21 05:00 A&P Assessment and plan (1) BPH with obstruction/lower urinary tract symptoms: Status: Acute (2) Bladder calculus: Status: Acute (3) ANTONIO (acute kidney injury): Status: Acute (4) Prostate cancer: Status: Acute (5) Hyperkalemia: Status: Acute (6) Acute kidney injury: Status: Acute (7) Bilateral hydronephrosis: Status: Acute (8) Obstructive uropathy: Status: Acute (9) Prostate cancer metastatic to intrapelvic lymph node: Status: Acute (10) Acute urinary retention: Status: Acute Plan #Acute urinary obstruction #Acute kidney injury, postrenal #Hyperkalemia on admission #Prostate cancer history #Hypertension -Continue normal saline 50 cc an hour ? Continue Tse catheter ? Potassium 5.0 this AM. He was treated twice with Kayexalate, insulin, dextrose. ? Keep holding losartan until ANTONIO and hyperkalemia resolved. Continue amlodipine. - Maintain Tse catheter until follow-up in roughly 2 weeks for voiding trial [facility] cystoscopy. - Started BICALUTAMIDE today by urology - Urology to make arrangements for oncology consultation for systemic therapy as outpatient. Full COde DVT PPX: SCDS Attestations Medical Necessity Statement*: Having hematuria. Will need to stay in hospital next 24-48 hours. Needs continued hospitalization for management of ANTONIO Coding Level of Care Code Acute Graduate Assistant Athletic Trainer for Chg Fwd Diagnoses BPH with obstruction/lower urinary tract symptoms N40.1; N13.8 Bladder calculus N21.0 ANTONIO (acute kidney injury) N17.9 Prostate cancer C61 Hyperkalemia E87.5 Acute kidney injury N17.9 Bilateral hydronephrosis N13.30 Obstructive uropathy N13.9 Prostate cancer metastatic to intrapelvic lymph node C61; C77.5 Acute urinary retention R33.8
--- NOTE | 2021-09-05 16:31 | PC.NURSE ---
Hematuria is resolving, no bladder irrigation completed at this time.
--- NOTE | 2021-09-05 18:24 | PC.NURSE ---
Did not preform catheter irrigation this shift as the pts hematuria is resolving.
[2021-09-06] VITALS: BP 185/81; PULSE 78; RESP 18; TEMP 36.7; O2SAT 93
[2021-09-06 04:00] VITALS: BP 126/63; PULSE 72; RESP 18; TEMP 36.7; O2SAT 96
[2021-09-06] MEDS: heparin 5,000 unit/mL INJ 1 mL 5000 UNIT SUBCUT (04:18)
[2021-09-06 06:00] VITALS: PULSE 62
--- NOTE | 2021-09-06 07:02 | PM.PN ---
Subjective Subjective: hematuria improving. feeling better. poor appetite. no sob or cp. Medications: Reviewed: Yes Medication Review Details: Current Medications Acetaminophen (Acetaminophen 325 Mg Tablet) 650 mg PO Q6H PRN PRN Reason: Mild/Mod Pain Or Temp >/= 101 Amlodipine Besylate (Amlodipine 10 Mg Tablet) 10 mg PO DAILY [facility] Last Admin: 09/05/21 08:19 Dose: 10 mg Documented by: Aspirin (Aspirin 81 Mg Ec Tablet) 81 mg PO DAILY [facility] Last Admin: 09/05/21 08:19 Dose: 81 mg Documented by: Atorvastatin Calcium (Atorvastatin 40 Mg Tablet) 20 mg PO DAILY [facility] Last Admin: 09/05/21 08:20 Dose: 20 mg Documented by: Bicalutamide (Bicalutamide 50 Mg Tablet) 50 mg PO DAILY@0800 [facility] Finasteride (Finasteride 5 Mg Tablet) 5 mg PO DAILY [facility] Last Admin: 09/05/21 08:21 Dose: 5 mg Documented by: Heparin Sodium (Porcine) (Heparin 5,000 Unit/Ml Inj 1 Ml) 5,000 unit SUBCUT Q12H [facility] Last Admin: 09/06/21 04:18 Dose: 5,000 unit Documented by: Labetalol HCl (Labetalol 5 Mg/Ml Sdv 20ml) 10 mg IVP ONCE PRN PRN Reason: for SBP >180. Hold for HR < 65 Morphine Sulfate (Morphine 4 Mg/Ml Sdv 1 Ml) 1 mg IVP Q4H PRN PRN Reason: SEVERE PAIN Naloxone HCl (Naloxone 0.4 Mg/Ml Sdv) 0.1 mg IVP Q2M PRN PRN Reason: OPIATERV Ondansetron HCl (Ondansetron 2 Mg/Ml Sdv 2 Ml) 4 mg IVP Q8H PRN PRN Reason: vomiting, or N/V if npo Pantoprazole Sodium (Pantoprazole Dr 40 Mg Tablet) 40 mg PO DAILY [facility] Last Admin: 09/05/21 08:21 Dose: 40 mg Documented by: Sodium Bicarbonate (Sodium Bicarbonate 650 Mg Tablet) 650 mg PO BID [facility] Last Admin: 09/05/21 22:03 Dose: 650 mg Documented by: Vitals/I&O/Wt Last Vital Signs Temp 98.0 F 09/06/21 04:00 Pulse 62 09/06/21 06:00 Resp 18 09/06/21 04:00 BP 126/63 09/06/21 04:00 Pulse Ox 96 09/06/21 04:00 09/05/21 09/06/21 09/06/21 22:59 06:59 14:59 Intake Total 240 / 720 100 / 820 Output Total 500 / 1025 540 / 1565 Balance -260 / -305 -440 / -745 Weight last 48 hrs Weight 102.104 kg Weight 101.196 kg Physical Exam Narrative: NARD. vs noted heent- nc/at, eomi, anicteric neck supple lungs clear heart- reg abd soft ext no edema neuro- a,a,o x 2 hou w/ clear urine Urinary Catheter Management: Hou Latex Free: Cath Placed During This Visit: yes Reason for Continuing Indwelling Catheter: Acute Urinary Retention or Obstruction Urinary Catheter Date of Insertion: 09/03/21 Urinary Catheter Time of Insertion: 23:00 Data : 09/05/21 05:00 09/05/21 05:00 A&P Assessment and plan (1) ANTONIO (acute kidney injury): 86 yr old man s/p prostate bx on 08/18/21 w/ Prostate ca. Pt admitted w/ ANTONIO from obstructive uropathy 1. ANTONIO- obstructive uropathy- improving w/ hou -appreciate Dr Bond of urology- needs hou and started bicalutamide yesterday -CT scan: Bilateral hydronephrosis, thickened bladder wall, and thickening of the posterior bladder wall near the trigone. Hydroureter extended down to the UVJ bilaterally.? CT scan also demonstrated significant pelvic lymphadenopathy in the obturator fossa area as well as Ultibro periaortic nodes. 2. htn- improving. if bp is an issue can add hydralazine. 3. anemia from cancer and hematuria- monitor hjgb. check iron studies 4. hyperkalemia improved 5. met acidosis improving 6. phos now normal seen and examined w/ RN- telehealth visit time spent 25 miin Status: Acute Plan see above Attestations Medical Necessity Statement*: per urology and medicine Time Spent in Patient Care: 16 - 35 minutes (>than 50% of time spent in counselling and/or direct pt care on unit). Coding Level of Care Code Acute Electronic Instrument Trades Worker for Dara Weber Diagnoses ANTONIO (acute kidney injury) N17.9
[2021-09-06 07:18] LABS: Alanine Aminotransferase 12 U/L (0-41); Albumin Level 3.1 g/dL (3.5-5.2); Alkaline Phosphatase 73 IU/L (40-130); Anion Gap 13.7 (5-19); Aspartate Amino Transferase 11 U/L (0-40); Blood Urea Nitrogen 32 mg/dL (8-23); Calcium 7.9 mg/dL (8.5-10.5); Carbon Dioxide 18 mmol/L (22-29); Chloride 110 mmol/L (98-107); Globulin 2.7 g/dL (1.3-4.6); Glucose 84 mg/dL (65-115); Magnesium 1.8 mg/dL (1.7-2.3); Osmolality Calculated 290 mOsm/kg (285-295); Phosphorus 3.3 mg/dL (2.5-4.5); Potassium 4.7 mmol/L (3.5-5.1); Sodium 137 mmol/L (136-145); Total Bilirubin 0.5 mg/dL (0.15-1.2); Total Protein 5.8 g/dL (6.6-8.7)
[2021-09-06 07:46] LABS: Basophils % 0.7 %; Eosinophils # 0.2 10^3/uL (0.0-0.8); Eosinophils % 3.3 %; Hematocrit 32.2 % (42.0-52.0); Hemoglobin 10.9 g/dL (11.7-16.6); Lymphocytes # 1.6 10^3/uL (0.8-4.8); Lymphocytes % 26.3 %; Mean Corpuscular HGB Conc 33.9 g/dL (30.0-36.0); Mean Corpuscular Hemoglobin 31.3 pg (28.0-34.0); Mean Corpuscular Volume 92.5 fl (80-94); Mean Platelet Volume 9.1 fL (7.4-10.4); Monocytes # 0.6 10^3/uL (0.2-0.9); Monocytes % 10.5 %; Neutrophils # 3.52 10^3/uL (1.8-7.7); Neutrophils % 58.7 %; Nucleated Red Blood Cells % 0 %; Platelet Count 186 10^3/cmm (130-400); Red Blood Count 3.48 10^6/uL (4.1-5.3); Red Cell Distribution Width 12.3 % (12.1-15.1)
[2021-09-06 08:00] VITALS: BP 173/81; PULSE 69; RESP 18; TEMP 37; O2SAT 94
[2021-09-06 08:53] LABS: Ferritin 368 ng/mL (30-400); Iron 65 ug/dL (59-158); Percent Saturation 41.1 % (20-50); Total Iron Binding Capacity 158 mcg/dl; Unsaturated Iron Binding 93 ug/dL (112-347)
[2021-09-06] MEDS: atorvastatin 40 mg Tablet 20 MG PO (09:00)
[2021-09-06] MEDS: finasteride 5 mg Tablet PO (09:00)
[2021-09-06] MEDS: sodium bicarbonate 650 mg Tablet PO (09:00)
[2021-09-06] MEDS: pantoprazole DR 40 mg Tablet PO (09:01)
[2021-09-06] MEDS: amlodipine 10 mg Tablet PO (09:01)
[2021-09-06] MEDS: aspirin 81 mg EC Tablet PO (09:01)
--- NOTE | 2021-09-06 09:54 | P.PN_ITS ---
Subjective Subjective: Urology follow-up Continues to recover renal function. Creatinine today is 2.0. Overall feeling much better. Reviewed with hospitalist. We will plan on discharging with Tse catheter in place and follow-up in about 2 weeks for cystoscopy, voiding trial, [facility] instruction. Prescription for bicalutamide filled. 50 mg/day recommended. 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 Vitals/I&O/Wt Last Vital Signs Temp 98.6 F 09/06/21 08:00 Pulse 69 09/06/21 08:00 Resp 18 09/06/21 08:00 BP 173/81 09/06/21 08:00 Pulse Ox 94 09/06/21 08:00 09/05/21 09/06/21 09/06/21 22:59 06:59 14:59 Intake Total 240 / 720 100 / 820 120 / 120 Output Total 500 / 1025 540 / 1565 Balance -260 / -305 -440 / -745 120 / 120 Weight last 48 hrs Weight 225 lb 1.6 oz Weight 223 lb 1.6 oz Physical Exam Narrative: Constitutional: Alert oriented no acute distress HEENT atraumatic normocephalic Neck good range of motion Chest: Normal movements Respiratory: No wheezing, nonlabored respiration Abdomen: Soft Genitourinary: Catheter functioning well. Urine is clear. No blood Extremity: Decreased edema Urinary Catheter Management: Tse Latex Free: Cath Placed During This Visit: yes Reason for Continuing Indwelling Catheter: Acute Urinary Retention or Obstruction Urinary Catheter Date of Insertion: 09/03/21 Urinary Catheter Time of Insertion: 23:00 Data : 09/06/21 05:59 09/06/21 05:54 A&P Assessment and plan (1) ANTONIO (acute kidney injury): Creatinine was almost 9 on admission. Decreased to 2.0 today. Status: Acute (2) Prostate cancer: Metastatic to pelvic and abdominal lymph nodes. Start BICALUTAMIDE Consult oncology on outpatient basis Status: Acute (3) Prostate cancer metastatic to intrapelvic lymph node: Status: Acute (4) Obstructive uropathy: Upper urinary tract dilation, distended bladder. Status: Acute (5) Acute urinary retention: Maintain Tse catheter discharge. Voiding trial cystoscopy [facility] training in 2 weeks. Status: Acute Attestations Medical Necessity Statement*: See attending Coding Level of Care Code Acute Continuous Mining Machine Coal Miner for Chg Fwd Diagnoses ANTONIO (acute kidney injury) N17.9 Prostate cancer C61 Prostate cancer metastatic to intrapelvic lymph node C61; C77.5 Obstructive uropathy N13.9 Acute urinary retention R33.8
[2021-09-06 11:51] VITALS: BP 154/78; PULSE 82; RESP 16; TEMP 36.8; O2SAT 95
--- NOTE | 2021-09-06 12:04 | P.DS_ITS ---
Discharge Providers Date of Admission: 09/04/21 01:41 Date of Discharge: September 06, 2021 Attending Provider at Admission: Cait Lopez MD Attending Provider at Discharge: Agnes Zayas MD Primary Care Provider: Luis Manuel Lawson MD Diagnoses at Discharge Discharge Diagnosis (1) ANTONIO (acute kidney injury): Status: Acute Reason for Visit Reason for Visit: unable to urinate Brief History: Marlon Fuentes is a 86 year old male with a past medical history of hypertension, recently diagnosed invasive prostatic adenocarcinoma after TRUSP/biopsy on 08/18/21 presenting today with inability to pass urine since 2 days. States that he last passed urine at 2 PM on Saturday.? He denies having had any urinary problems before then.? Denies any hesitancy, dysuria, blood in urine.? However patient does appear to be a poor historian overall denying all problems prior to Saturday.? Denies any abdominal pain.? Tse catheter was placed in the emergency room and immediately drained 1300 cc urine.? He was noted to have ANTONIO a creatinine at 9.8 and hyperkalemia with a potassium of 6.? He has received insulin dextrose and Kayexalate in the ED and has had A few bowel movements thereafter. Denies any fever chills chest pain dyspnea or palpitations. Hospital Course Hospital Course Patient admitted for acute urinary obstruction. Tse catheter was placed. Creatinine was elevated at admission which trended down slowly. Post renal cause.His losartan was stopped and amlodipine and hydralazine were added. Bicalutamide by it was added by urology as well. By day of discharge hyperkalemia corrected, creatinine, BUN improved. He was discharged home with a Tse to follow-up as an outpatient with Dr. Bond. He was also given appointment with oncology for further work-up. Patient was given prescription to recheck kidney function in a week. All questions answered. Sent home in stable condition. Please read progress notes for further detail. Physical Exam Narrative: General: Alert oriented x3, patient seen laying in bed HEENT: Normocephalic, atraumatic, EOMI Cardio: Regular rate rhythm, normal S1-S2 Respiratory: Clear to auscultation bilaterally GI: Abdomen soft, nontender, nondistended, bowel sounds + Extremities: no edema, no cyanosis Tse draining clear yellow urine. Urinary Catheter Management: Tse Latex Free: Cath Placed During This Visit: yes Reason for Continuing Indwelling Catheter: Acute Urinary Retention or Obstruction Urinary Catheter Date of Insertion: 09/03/21 Urinary Catheter Time of Insertion: 23:00 Discharge Data Studies Completed and Pending Completed Studies During Hospitalization Category Date Time Status CT kidney stone [id number] Urgent Cat Scan 09/03/21 22:47 Completed XR chest 1V portable [id number] Stat Exams 09/04/21 01:16 Completed US renal BI* [id number] Routine Ultrasound 09/05/21 07:57 Completed Pending at discharge Category Date Time Status Comprehensive Metabolic Panel AM LABS Lab 09/07/21 04:00 Ordered Comprehensive Metabolic Panel AM LABS Lab 09/08/21 04:00 Ordered Magnesium AM LABS Lab 09/07/21 04:00 Ordered Magnesium AM LABS Lab 09/08/21 04:00 Ordered Phosphorus AM LABS Lab 09/07/21 04:00 Ordered Phosphorus AM LABS Lab 09/08/21 04:00 Ordered Venous Blood Gas Stat Lab 09/04/21 16:08 Results Radiology Impressions Abdomen/Pelvis CT 09/03/21 22:47 IMPRESSION: 1. Moderate to severe hydronephrosis and hydroureter with diffuse urinary bladder wall thickening and and enlarged prostate gland, perhaps reflecting sequelae of chronic outflow obstruction. 2. Tse catheter in the urinary bladder. 3. Scattered prominent periaortic and retrocrural lymph nodes measuring up to 17 mm, nonspecific. 4. Bibasilar atelectasis. 5. Small pericardial effusion measuring 9.5 mm in thickness. 6. Cholelithiasis. Chest X-Ray 09/04/21 01:16 IMPRESSION: No chest radiographic evidence of acute cardiopulmonary disease. Renal Ultrasound 09/05/21 07:57 IMPRESSION: 1. Minimal residual LEFT hydronephrosis since 09/03/2021. 2. No RIGHT hydronephrosis. 3. Tse catheter is present in the urinary bladder. There is diffuse bladder wall thickening surrounding the Tse catheter balloon. The wall measures up to 2.3 cm. There is a severe bladder wall thickening. Differential includes neoplasm but more likely hypertrophy from chronic outlet obstruction due to the diffuse nature. Laboratory Results WBC 6.0 10^3/uL (4.0-10.0) 09/06/21 05:59 RBC 3.48 10^6/uL (4.1-5.3) L 09/06/21 05:59 Hgb 10.9 g/dL (11.7-16.6) L 09/06/21 05:59 Hct 32.2 % (42.0-52.0) L 09/06/21 05:59 MCV 92.5 fl (80-94) 09/06/21 05:59 MCH 31.3 pg (28.0-34.0) 09/06/21 05:59 MCHC 33.9 g/dL (30.0-36.0) 09/06/21 05:59 RDW 12.3 % (12.1-15.1) 09/06/21 05:59 Plt Count 186 10^3/cmm (130-400) 09/06/21 05:59 MPV 9.1 fL (7.4-10.4) 09/06/21 05:59 Neut % (Auto) 58.7 % 09/06/21 05:59 Lymph % (Auto) 26.3 % 09/06/21 05:59 Potter % (Auto) 10.5 % 09/06/21 05:59 Eos % (Auto) 3.3 % 09/06/21 05:59 Baso % (Auto) 0.7 % 09/06/21 05:59 Neut # (Auto) 3.52 10^3/uL (1.8-7.7) 09/06/21 05:59 Lymph # (Auto) 1.6 10^3/uL (0.8-4.8) 09/06/21 05:59 Potter # (Auto) 0.6 10^3/uL (0.2-0.9) 09/06/21 05:59 Eos # (Auto) 0.2 10^3/uL (0.0-0.8) 09/06/21 05:59 Baso # (Auto) 0.0 10^3/uL (0.0-0.1) 09/06/21 05:59 Nucleated RBC % (auto) 0 % 09/06/21 05:59 Nucleated RBCs # 0.0 /100WBC 09/06/21 05:59 Specimen Type Arterial 09/04/21 16:08 Jung Test N/a 09/04/21 16:08 VBG pH 7.30 (7.32-7.42) L 09/04/21 16:08 VBG pCO2 30.9 mmHg (41-51) L 09/04/21 16:08 VBG pO2 61.3 mmHg (25-40) H 09/04/21 16:08 VBG HCO3 15.1 mmol/L (24-28) L 09/04/21 16:08 VBG Base Excess -10.2 mmol/L (-3.0-3.0) L 09/04/21 16:08 VBG Hematocrit 36.5 % (42-52) L 09/04/21 16:08 Circular Saw Edge Fuser ID Rosette 09/04/21 16:08 Sodium 137 mmol/L (136-145) 09/06/21 05:54 Potassium 4.7 mmol/L (3.5-5.1) 09/06/21 05:54 Chloride 110 mmol/L (98-107) H 09/06/21 05:54 Carbon Dioxide 18 mmol/L (22-29) L 09/06/21 05:54 Anion Gap 13.7 (5-19) 09/06/21 05:54 BUN 32 mg/dL (8-23) H 09/06/21 05:54 Creatinine 2.0 mg/dL (0.7-1.2) H 09/06/21 05:54 GFR Calculation Not Reportable 09/06/21 05:54 Glucose 84 mg/dL (65-115) 09/06/21 05:54 Calculated Osmolality 290 mOsm/kg (285-295) 09/06/21 05:54 Calcium 7.9 mg/dL (8.5-10.5) L 09/06/21 05:54 Phosphorus 3.3 mg/dL (2.5-4.5) 09/06/21 05:54 Magnesium 1.8 mg/dL (1.7-2.3) 09/06/21 05:54 Iron 65 ug/dL (59-158) 09/06/21 05:54 TIBC 158 mcg/dl 09/06/21 05:54 % Saturation 41.1 % (20-50) 09/06/21 05:54 Unsat Iron Binding 93 ug/dL (112-347) L 09/06/21 05:54 Ferritin 368 ng/mL (30-400) 09/06/21 05:54 Total Bilirubin 0.5 mg/dL (0.15-1.2) 09/06/21 05:54 AST 11 U/L (0-40) 09/06/21 05:54 ALT 12 U/L (0-41) 09/06/21 05:54 Alkaline Phosphatase 73 IU/L (40-130) 09/06/21 05:54 C-Reactive Protein 14.1 mg/L (0.0-4.9) H 09/03/21 23:00 Total Protein 5.8 g/dL (6.6-8.7) L 09/06/21 05:54 Albumin 3.1 g/dL (3.5-5.2) L 09/06/21 05:54 Globulin 2.7 g/dL (1.3-4.6) 09/06/21 05:54 Urine Color Yellow (Yellow) 09/03/21 23:00 Urine Appearance Clear (CLEAR) 09/03/21 23:00 Urine pH 5 (5-7) 09/03/21 23:00 Ur Specific [place] 1.020 (1.005-1.030) 09/03/21 23:00 Urine Protein Neg (Negative) 09/03/21 23:00 Urine Glucose (UA) Norm (Normal) 09/03/21 23:00 Urine Ketones Negative (Negative) 09/03/21 23:00 Urine Blood Neg (Negative) 09/03/21 23:00 Urine Nitrate Negative (Negative) 09/03/21 23:00 Urine Bilirubin Neg (Negative) 09/03/21 23:00 Urine Urobilinogen Norm mg/dL (Negative) 09/03/21 23:00 Ur Leukocyte Esterase Negative (Negative) 09/03/21 23:00 Vitals Last Vital Signs Temp 98.3 F 09/06/21 11:51 Pulse 82 09/06/21 11:51 Resp 16 09/06/21 11:51 BP 154/78 09/06/21 11:51 Pulse Ox 95 09/06/21 11:51 Discharge Plan Discharge Patient Disposition: Home Condition: Stable Prescriptions: New bicalutamide 50 mg Tablet 50 mg PO DAILY@0800 Qty: 30 3RF hydralazine 25 mg tablet 25 mg PO TID 30 Days Qty: 90 0RF amlodipine 10 mg Tablet 10 mg PO DAILY 30 Days Qty: 30 0RF Continued lovastatin 20 mg tablet 20 mg PO BEDTIME 0RF aspirin [Adult Low Dose Aspirin] 81 mg tablet,delayed release (DR/EC) 81 mg PO QAM 0RF Hold Instructions: Dose Change Rx Instructions: on hold finasteride 5 mg tablet 5 mg PO QAM 0RF Held losartan [Cozaar] 100 mg tablet 100 mg PO BEDTIME 0RF Hold Instructions: hold till seen by PCP and repeat labs done Discontinued amlodipine 5 mg tablet 5 mg PO BEDTIME 0RF Discharge Orders: Discharge Order (Routine); Ordered 09/06/21 Ordered By: Adonis oBnd Other Ambulatory Orders: Basic Metabolic Panel (Routine) Timeframe: 1 Week Facility: [facility] - Location: Lab - Main Lab Ordered By: Agnes Zayas Referrals: Luis Manuel Lawson MD [Primary Care Provider] - 09/11/21 10:00 am Adonis Bond MD [Physician] - 2 weeks (Cystoscopy, voiding trial, possible [facility] says they will call patient to schedule appointment. [phone]) Des Helms MD [Staff Physician] - 2 weeks ([facility] [employer] DR HELMS OFFICE WILL CALL WITH APPOINTMENT Bicalutamide initiated. See Ronda's notes) Discharge Diet: Low Salt Discharge Activity: Resume usual activity Patient Instructions: Hydralazine (By mouth), Amlodipine (By mouth), Bicalutamide (By mouth), Enlarged Prostate (BPH) (GEN), Opioid Safety Activity Restrictions/Additional Instructions: Urology instructions: 1. We will keep the catheter in your bladder until I see you in clinic. The nurses have trained you on how to use the big bag and the small bag (leg bag) in order to catch the urine. You can choose whichever 1 you prefer. The leg bag provides you the opportunity to have it more concealed. 2. In my office we will remove the catheter, look in your bladder with a flexible catheter scope, and do a voiding trial to see if you can void on your own. We will also train you on how to slide a catheter into your bladder to empty it if you are not adequately emptying. This really is pretty easy to learn and generally better tolerated than leaving a catheter in full-time 3. A consult has been sent to oncology, Dr. Helms, for treatment of your prostate cancer which has been identified as spreading to the lymph nodes. A prescription for BICALUTAMIDE 50 mg daily has been sent to your pharmacy. Please take this medication in preparation for the next level of treatment. 4. Please call my office at [phone] if you have questions. Recently we have been having trouble with our phones so please continue to call if you are not getting the answer you need. Discharge Attestations Time Spent in Discharge Care*: less than 30 min Quality Metrics Clinical Quality Measures [ No reported AMI, CVA or VTE this stay] Coding Level of Care Code Acute g [facility] note Diagnoses ANTONIO (acute kidney injury) N17.9
--- NOTE | 2021-09-06 12:28 | PC.NURSE ---
sent pt home with new catheter drainage bag in belongings bag and leg bag applied for discharge.
[2021-09-06 12:29] VITALS: BP 154/78; PULSE 82; RESP 16; TEMP 36.8; O2SAT 95
== END 2021-09-06 12:30 | disposition home health service (06) | DRG 683 ==
LOC: ER 09-04 01:15 → ICU 09-04 02:08 → MEDSURG 09-04 13:49
PROVIDERS: Internal Medicine Nephrology; Admitting Provider Student in an Organized Health Care Education/Training Program; Emergency Provider Emergency Medicine; PCP Family Medicine; Visit Provider Internal Medicine
DX: N17.9 Acute kidney failure, unspecified (principal); C77.5 Secondary and unspecified malignant neoplasm of intrapelvic lymph nodes; N13.8 Other obstructive and reflux uropathy; E87.2 Acidosis; N40.1 Benign prostatic hyperplasia with lower urinary tract symptoms; N13.30 Unspecified hydronephrosis; C61 Malignant neoplasm of prostate; R33.8 Other retention of urine; R39.198 Other difficulties with micturition; I10 Essential (primary) hypertension; E78.5 Hyperlipidemia, unspecified; Z87.891 Personal history of nicotine dependence; E87.5 Hyperkalemia; D63.0 Anemia in neoplastic disease; Z79.82 Long term (current) use of aspirin
CPT/HCPCS: 36415; 51702; 71045; 74176; 76770; 80048; 80053; 81003; 82728; 82803; 83540; 83550; 83735; 84100; 85025; 86140; 93005; 94760; 96361; 96372; 96374; 96375; 99285; J0360; J0610; J1644; J1815; J7030; J8999

== ENCOUNTER → 2021-09-20 14:44 | Outpatient (BNVA) | payer MEDICARE, MEDICAID, SELFPAY | PROVIDERS: PCP Family Medicine; Visit Provider Urology | DX: N13.9 Obstructive and reflux uropathy, unspecified (principal); C61 Malignant neoplasm of prostate; C77.5 Secondary and unspecified malignant neoplasm of intrapelvic lymph nodes; N13.30 Unspecified hydronephrosis; N17.9 Acute kidney failure, unspecified | CPT/HCPCS: 99213 ==

== ENCOUNTER 2021-09-21 13:17 | Oncology outpatient (recurring) (ONCR) | payer MEDICARE, MEDICAID, SELFPAY | END 2021-10-18 23:59 | disposition home or self-care (01) | PROVIDERS: PCP Family Medicine; Visit Provider Internal Medicine Hematology & Oncology | DX: C61 Malignant neoplasm of prostate (principal); R59.0 Localized enlarged lymph nodes; N13.2 Hydronephrosis with renal and ureteral calculous obstruction; N13.4 Hydroureter; Z79.818 Long term (current) use of other agents affecting estrogen receptors and estrogen levels; Z79.899 Other long term (current) drug therapy; Z87.891 Personal history of nicotine dependence | CPT/HCPCS: 99205 ==

== ENCOUNTER → 2021-10-06 06:59 | Outpatient (BNVA) | payer MEDICARE, MEDICAID, SELFPAY | PROVIDERS: PCP Family Medicine; Visit Provider Urology | DX: C61 Malignant neoplasm of prostate (principal); R33.8 Other retention of urine; N13.9 Obstructive and reflux uropathy, unspecified; C77.5 Secondary and unspecified malignant neoplasm of intrapelvic lymph nodes | CPT/HCPCS: 52000; 99213 ==

== ENCOUNTER 2021-11-06 11:15 | Oncology outpatient (recurring) (ONCR) | payer MEDICARE, MEDICAID, SELFPAY ==
[2021-10-24 12:27] LABS: Basophils # 0.1 10^3/uL (0.0-0.1); Basophils % 0.8 %; Eosinophils # 0.2 10^3/uL (0.0-0.8); Eosinophils % 2.2 %; Hematocrit 39.2 % (42.0-52.0); Hemoglobin 13.2 g/dL (11.7-16.6); Lymphocytes # 2.3 10^3/uL (0.8-4.8); Lymphocytes % 29.4 %; Mean Corpuscular HGB Conc 33.7 g/dL (30.0-36.0); Mean Corpuscular Hemoglobin 31.7 pg (28.0-34.0); Mean Corpuscular Volume 94.2 fl (80-94); Mean Platelet Volume 8.2 fL (7.4-10.4); Monocytes # 0.7 10^3/uL (0.2-0.9); Monocytes % 8.2 %; Neutrophils # 4.62 10^3/uL (1.8-7.7); Neutrophils % 58.6 %; Nucleated Red Blood Cells % 0 %; Platelet Count 283 10^3/cmm (130-400); Red Blood Count 4.16 10^6/uL (4.1-5.3); Red Cell Distribution Width 12.2 % (12.1-15.1); White Blood Count 7.9 10^3/uL (4.0-10.0)
[2021-10-24 12:57] LABS: Alanine Aminotransferase 16 U/L (0-41); Albumin Level 3.8 g/dL (3.5-5.2); Alkaline Phosphatase 124 U/L (40-130); Anion Gap 15.2 (5-19); Aspartate Amino Transferase 12 U/L (0-40); Blood Urea Nitrogen 22 mg/dL (8-23); Calcium 9.2 mg/dL (8.5-10.5); Carbon Dioxide 24 mmol/L (22-29); Chloride 104 mmol/L (98-107); Globulin 3.6 g/dL (1.3-4.6); Glucose 148 mg/dL (65-115); Osmolality Calculated 294 mOsm/kg (285-295); Potassium 4.2 mmol/L (3.5-5.1); Sodium 139 mmol/L (136-145); Testosterone Total 565.2 ng/dL (193-740); Total Bilirubin 0.6 mg/dL (0.15-1.2); Total Protein 7.4 g/dL (6.6-8.7)
[2021-10-31] MEDS: leuprolide 22.5 mg Kit IM (10:19)
[2021-11-06 11:26] LABS: Basophils % 0.2 %; Eosinophils % 0.1 %; Hemoglobin 14.1 g/dL (11.7-16.6); Lymphocytes # 2.2 10^3/uL (0.8-4.8); Lymphocytes % 19.6 %; Mean Corpuscular HGB Conc 32.8 g/dL (30.0-36.0); Mean Corpuscular Hemoglobin 31.4 pg (28.0-34.0); Mean Corpuscular Volume 95.8 fl (80-94); Mean Platelet Volume 8.7 fL (7.4-10.4); Monocytes # 0.6 10^3/uL (0.2-0.9); Monocytes % 5.4 %; Neutrophils # 8.43 10^3/uL (1.8-7.7); Neutrophils % 73.9 %; Nucleated Red Blood Cells % 0 %; Platelet Count 263 10^3/cmm (130-400); Red Blood Count 4.49 10^6/uL (4.1-5.3); Red Cell Distribution Width 12.9 % (12.1-15.1); White Blood Count 11.4 10^3/uL (4.0-10.0)
[2021-11-06 12:04] LABS: Alanine Aminotransferase 13 U/L (0-41); Albumin Level 3.9 g/dL (3.5-5.2); Alkaline Phosphatase 103 U/L (40-130); Anion Gap 15.5 (5-19); Aspartate Amino Transferase 12 U/L (0-40); Blood Urea Nitrogen 30 mg/dL (8-23); Carbon Dioxide 23 mmol/L (22-29); Chloride 105 mmol/L (98-107); Globulin 3.4 g/dL (1.3-4.6); Glucose 106 mg/dL (65-115); Osmolality Calculated 295 mOsm/kg (285-295); Potassium 4.5 mmol/L (3.5-5.1); Sodium 139 mmol/L (136-145); Testosterone Total 612.8 ng/dL (193-740); Total Bilirubin 0.7 mg/dL (0.15-1.2); Total Protein 7.3 g/dL (6.6-8.7)
== END 2021-11-17 23:59 | disposition home or self-care (01) ==
PROVIDERS: PCP Family Medicine; Visit Provider Internal Medicine Hematology & Oncology
DX: C61 Malignant neoplasm of prostate (principal); N13.39 Other hydronephrosis; N13.4 Hydroureter; Z79.818 Long term (current) use of other agents affecting estrogen receptors and estrogen levels; Z79.52 Long term (current) use of systemic steroids; Z79.899 Other long term (current) drug therapy; Z87.891 Personal history of nicotine dependence
CPT/HCPCS: 36415; 51741; 51798; 80053; 84153; 84403; 85025; 87077; 87086; 87186; 96402; 99213; 99214; J9217

== ENCOUNTER → 2021-11-13 08:08 | Outpatient (BNVA) | payer MEDICARE, MEDICAID, SELFPAY | PROVIDERS: PCP Family Medicine; Visit Provider Urology | DX: N40.1 Benign prostatic hyperplasia with lower urinary tract symptoms (principal); R33.8 Other retention of urine; N13.8 Other obstructive and reflux uropathy; R82.71 Bacteriuria; C61 Malignant neoplasm of prostate; C77.5 Secondary and unspecified malignant neoplasm of intrapelvic lymph nodes; N21.0 Calculus in bladder; N13.30 Unspecified hydronephrosis | CPT/HCPCS: 51741; 51798; 81003; 99213 ==

== ENCOUNTER 2021-11-24 09:34 | Oncology outpatient (recurring) (ONCR) | payer MEDICARE, MEDICAID, SELFPAY ==
[2021-11-24 10:13] LABS: Basophils % 0.4 %; Eosinophils % 0.5 %; Hematocrit 42.4 % (42.0-52.0); Hemoglobin 13.9 g/dL (11.7-16.6); Lymphocytes # 1.7 10^3/uL (0.8-4.8); Lymphocytes % 20.1 %; Mean Corpuscular HGB Conc 32.8 g/dL (30.0-36.0); Mean Corpuscular Hemoglobin 32.2 pg (28.0-34.0); Mean Corpuscular Volume 98.1 fl (80-94); Mean Platelet Volume 8.7 fL (7.4-10.4); Monocytes # 0.7 10^3/uL (0.2-0.9); Monocytes % 8.2 %; Neutrophils # 5.78 10^3/uL (1.8-7.7); Nucleated Red Blood Cells % 0 %; Platelet Count 212 10^3/cmm (130-400); Red Blood Count 4.32 10^6/uL (4.1-5.3); White Blood Count 8.3 10^3/uL (4.0-10.0)
[2021-11-24 11:00] LABS: Alanine Aminotransferase 14 U/L (0-41); Albumin Level 3.6 g/dL (3.5-5.2); Alkaline Phosphatase 100 U/L (40-130); Anion Gap 16.3 (5-19); Aspartate Amino Transferase 10 U/L (0-40); Blood Urea Nitrogen 34 mg/dL (8-23); Calcium 9.3 mg/dL (8.5-10.5); Carbon Dioxide 25 mmol/L (22-29); Chloride 102 mmol/L (98-107); Globulin 3.5 g/dL (1.3-4.6); Glucose 101 mg/dL (65-115); Osmolality Calculated 296 mOsm/kg (285-295); Potassium 4.3 mmol/L (3.5-5.1); Sodium 139 mmol/L (136-145); Testosterone Total 2.5 ng/dL (193-740); Total Bilirubin 0.7 mg/dL (0.15-1.2); Total Protein 7.1 g/dL (6.6-8.7)
== END 2021-12-18 23:59 | disposition home or self-care (01) ==
PROVIDERS: PCP Family Medicine; Visit Provider Internal Medicine Hematology & Oncology
DX: C61 Malignant neoplasm of prostate (principal); Z79.818 Long term (current) use of other agents affecting estrogen receptors and estrogen levels; N13.4 Hydroureter; Z79.52 Long term (current) use of systemic steroids; Z79.899 Other long term (current) drug therapy; Z87.891 Personal history of nicotine dependence; C77.8 Secondary and unspecified malignant neoplasm of lymph nodes of multiple regions; N13.9 Obstructive and reflux uropathy, unspecified; N40.1 Benign prostatic hyperplasia with lower urinary tract symptoms; N13.8 Other obstructive and reflux uropathy
CPT/HCPCS: 36415; 80053; 84153; 84403; 85025; 99214

== ENCOUNTER 2021-12-19 07:43 | Oncology outpatient (recurring) (ONCR) | payer MEDICARE, MEDICAID, SELFPAY ==
[2021-12-19 08:06] LABS: Basophils # 0.1 10^3/uL (0.0-0.1); Basophils % 1.2 %; Eosinophils # 0.3 10^3/uL (0.0-0.8); Eosinophils % 3.4 %; Hemoglobin 13.3 g/dL (11.7-16.6); Lymphocytes # 3.4 10^3/uL (0.8-4.8); Lymphocytes % 41.1 %; Mean Corpuscular HGB Conc 34.1 g/dL (30.0-36.0); Mean Corpuscular Hemoglobin 31.6 pg (28.0-34.0); Mean Corpuscular Volume 92.6 fl (80-94); Mean Platelet Volume 8.4 fL (7.4-10.4); Monocytes # 0.9 10^3/uL (0.2-0.9); Monocytes % 10.4 %; Neutrophils # 3.52 10^3/uL (1.8-7.7); Neutrophils % 43.3 %; Nucleated Red Blood Cells % 0 %; Platelet Count 312 10^3/cmm (130-400); Red Blood Count 4.21 10^6/uL (4.1-5.3); Red Cell Distribution Width 12.6 % (12.1-15.1); White Blood Count 8.2 10^3/uL (4.0-10.0)
[2021-12-19 08:43] LABS: Alanine Aminotransferase 9 U/L (0-41); Albumin Level 3.7 g/dL (3.5-5.2); Alkaline Phosphatase 111 U/L (40-130); Anion Gap 15.9 (5-19); Aspartate Amino Transferase 16 U/L (0-40); Blood Urea Nitrogen 17 mg/dL (8-23); Calcium 9.4 mg/dL (8.5-10.5); Carbon Dioxide 23 mmol/L (22-29); Chloride 104 mmol/L (98-107); Glucose 115 mg/dL (65-115); Osmolality Calculated 290 mOsm/kg (285-295); Potassium 3.9 mmol/L (3.5-5.1); Sodium 139 mmol/L (136-145); Total Bilirubin 0.6 mg/dL (0.15-1.2); Total Protein 7.7 g/dL (6.6-8.7)
== END 2022-01-17 23:59 | disposition home or self-care (01) ==
PROVIDERS: PCP Family Medicine; Visit Provider Internal Medicine Hematology & Oncology
DX: C61 Malignant neoplasm of prostate (principal); C77.8 Secondary and unspecified malignant neoplasm of lymph nodes of multiple regions; Z79.52 Long term (current) use of systemic steroids; Z79.818 Long term (current) use of other agents affecting estrogen receptors and estrogen levels; Z79.899 Other long term (current) drug therapy; N13.30 Unspecified hydronephrosis; N13.4 Hydroureter
CPT/HCPCS: 36415; 80053; 84153; 85025; 99214

== ENCOUNTER 2022-01-23 09:53 | Oncology outpatient (recurring) (ONCR) | payer MEDICARE, MEDICAID, SELFPAY ==
[2022-01-23 10:17] LABS: Basophils % 0.3 %; Eosinophils % 0.3 %; Hematocrit 43.4 % (42.0-52.0); Hemoglobin 13.8 g/dL (11.7-16.6); Lymphocytes # 1.8 10^3/uL (0.8-4.8); Lymphocytes % 20.7 %; Mean Corpuscular HGB Conc 31.8 g/dL (30.0-36.0); Mean Corpuscular Hemoglobin 31.4 pg (28.0-34.0); Mean Corpuscular Volume 98.6 fl (80-94); Mean Platelet Volume 8.6 fL (7.4-10.4); Monocytes # 0.5 10^3/uL (0.2-0.9); Monocytes % 5.4 %; Neutrophils # 6.36 10^3/uL (1.8-7.7); Neutrophils % 72.5 %; Nucleated Red Blood Cells % 0 %; Platelet Count 236 10^3/cmm (130-400); Red Cell Distribution Width 13.7 % (12.1-15.1); White Blood Count 8.8 10^3/uL (4.0-10.0)
[2022-01-23 10:52] LABS: Alanine Aminotransferase 13 U/L (0-41); Albumin Level 3.9 g/dL (3.5-5.2); Alkaline Phosphatase 110 U/L (40-130); Anion Gap 14.4 (5-19); Aspartate Amino Transferase 11 U/L (0-40); Blood Urea Nitrogen 33 mg/dL (8-23); Calcium 9.2 mg/dL (8.5-10.5); Carbon Dioxide 24 mmol/L (22-29); Chloride 106 mmol/L (98-107); Globulin 3.3 g/dL (1.3-4.6); Glucose 116 mg/dL (65-115); Osmolality Calculated 298 mOsm/kg (285-295); Potassium 4.4 mmol/L (3.5-5.1); Sodium 140 mmol/L (136-145); Testosterone Total 2.5 ng/dL (193-740); Total Bilirubin 0.6 mg/dL (0.15-1.2); Total Protein 7.2 g/dL (6.6-8.7)
[2022-01-23] MEDS: leuprolide 22.5 mg Kit IM (12:09)
[2022-01-23 12:10] VITALS: BP 112/78; PULSE 67; RESP 17; TEMP 36.1
== END 2022-02-17 23:59 | disposition home or self-care (01) ==
PROVIDERS: PCP Family Medicine; Visit Provider Internal Medicine Hematology & Oncology
DX: C61 Malignant neoplasm of prostate (principal); C77.8 Secondary and unspecified malignant neoplasm of lymph nodes of multiple regions; N13.30 Unspecified hydronephrosis; N13.4 Hydroureter; Z79.52 Long term (current) use of systemic steroids; Z79.818 Long term (current) use of other agents affecting estrogen receptors and estrogen levels; Z79.899 Other long term (current) drug therapy; R53.1 Weakness; R53.83 Other fatigue
CPT/HCPCS: 36415; 80053; 84153; 84403; 85025; 96402; 99214; J9217

== ENCOUNTER 2022-04-18 10:48 | Oncology outpatient (recurring) (ONCR) | payer MEDICARE, MEDICAID, SELFPAY ==
[2022-04-18 11:32] LABS: Basophils % 0.4 %; Eosinophils % 0.4 %; Hematocrit 41.2 % (42.0-52.0); Hemoglobin 13.6 g/dL (11.7-16.6); Lymphocytes # 1.9 10^3/uL (0.8-4.8); Lymphocytes % 22.3 %; Mean Corpuscular Hemoglobin 31.6 pg (28.0-34.0); Mean Corpuscular Volume 95.6 fl (80-94); Mean Platelet Volume 8.8 fL (7.4-10.4); Monocytes # 0.6 10^3/uL (0.2-0.9); Monocytes % 7.2 %; Neutrophils # 5.73 10^3/uL (1.8-7.7); Neutrophils % 68.9 %; Nucleated Red Blood Cells % 0 %; Platelet Count 233 10^3/cmm (130-400); Red Blood Count 4.31 10^6/uL (4.1-5.3); Red Cell Distribution Width 13.4 % (12.1-15.1); White Blood Count 8.3 10^3/uL (4.0-10.0)
[2022-04-18 12:23] LABS: Alanine Aminotransferase 11 U/L (0-41); Albumin Level 3.8 g/dL (3.5-5.2); Alkaline Phosphatase 89 U/L (40-130); Anion Gap 17.2 (5-19); Aspartate Amino Transferase 11 U/L (0-40); Blood Urea Nitrogen 31 mg/dL (8-23); Calcium 9.3 mg/dL (8.5-10.5); Carbon Dioxide 23 mmol/L (22-29); Chloride 103 mmol/L (98-107); Glucose 106 mg/dL (65-115); Osmolality Calculated 295 mOsm/kg (285-295); Potassium 4.2 mmol/L (3.5-5.1); Sodium 139 mmol/L (136-145); Testosterone Total 2.5 ng/dL (193-740); Total Bilirubin 0.9 mg/dL (0.15-1.2); Total Protein 6.8 g/dL (6.6-8.7)
[2022-04-18] MEDS: leuprolide 22.5 mg Kit IM (13:49)
[2022-04-18 14:04] VITALS: BP 164/86; PULSE 70; RESP 16; TEMP 36.3; O2SAT 97
== END 2022-05-18 23:59 | disposition home or self-care (01) ==
PROVIDERS: PCP Family Medicine; Visit Provider Internal Medicine Hematology & Oncology
DX: C61 Malignant neoplasm of prostate (principal); C77.8 Secondary and unspecified malignant neoplasm of lymph nodes of multiple regions; Z79.52 Long term (current) use of systemic steroids; Z79.818 Long term (current) use of other agents affecting estrogen receptors and estrogen levels; Z79.899 Other long term (current) drug therapy
CPT/HCPCS: 36415; 80053; 84153; 84403; 85025; 96402; 99214; J9217

== ENCOUNTER → 2022-05-03 14:08 | Outpatient (BNVA) | payer MEDICARE, MEDICAID, SELFPAY | PROVIDERS: PCP Family Medicine; Visit Provider Urology | DX: N40.1 Benign prostatic hyperplasia with lower urinary tract symptoms (principal); N13.8 Other obstructive and reflux uropathy; R82.71 Bacteriuria; C61 Malignant neoplasm of prostate; C77.5 Secondary and unspecified malignant neoplasm of intrapelvic lymph nodes; N21.0 Calculus in bladder | CPT/HCPCS: 51741; 51798; 81003; 99213 ==

== ENCOUNTER 2022-07-12 13:38 | Oncology outpatient (recurring) (ONCR) | payer MEDICARE, MEDICAID, SELFPAY ==
[2022-07-12 15:30] VITALS: BP 172/81; PULSE 76; RESP 16; TEMP 37.1; O2SAT 98
[2022-07-12] MEDS: leuprolide 22.5 mg Kit IM (15:33)
[2022-07-12 15:38] VITALS: BP 171/81; PULSE 81; RESP 18; TEMP 36.6; O2SAT 98
== END 2022-07-18 23:59 | disposition home or self-care (01) ==
PROVIDERS: PCP Family Medicine; Visit Provider Internal Medicine Hematology & Oncology
DX: C61 Malignant neoplasm of prostate (principal); C77.8 Secondary and unspecified malignant neoplasm of lymph nodes of multiple regions; Z79.52 Long term (current) use of systemic steroids; Z79.818 Long term (current) use of other agents affecting estrogen receptors and estrogen levels; Z79.899 Other long term (current) drug therapy; R63.5 Abnormal weight gain
CPT/HCPCS: 80053; 84153; 84403; 85025; 96402; 99214; J9217

== ENCOUNTER 2022-10-16 07:49 | Oncology outpatient (recurring) (ONCR) | payer MEDICARE, MEDICAID, SELFPAY ==
[2022-10-04 11:42] VITALS: BP 169/83; PULSE 90; RESP 18; TEMP 36.7; O2SAT 94
[2022-10-04 11:52] LABS: Basophils # 0.1 10^3/uL (0.0-0.1); Basophils % 0.6 %; Eosinophils # 0.2 10^3/uL (0.0-0.8); Eosinophils % 2.3 %; Hematocrit 39.4 % (42.0-52.0); Hemoglobin 13.2 g/dL (11.7-16.6); Lymphocytes # 2.3 10^3/uL (0.8-4.8); Lymphocytes % 27.3 %; Mean Corpuscular HGB Conc 33.5 g/dL (30.0-36.0); Mean Corpuscular Volume 95.4 fl (80-94); Mean Platelet Volume 8.7 fL (7.4-10.4); Monocytes # 0.8 10^3/uL (0.2-0.9); Neutrophils # 5.02 10^3/uL (1.8-7.7); Neutrophils % 59.4 %; Nucleated Red Blood Cells % 0 %; Platelet Count 237 10^3/cmm (130-400); Red Blood Count 4.13 10^6/uL (4.1-5.3); Red Cell Distribution Width 12.3 % (12.1-15.1); White Blood Count 8.4 10^3/uL (4.0-10.0)
[2022-10-04 12:30] LABS: Alanine Aminotransferase 7 U/L (0-41); Albumin Level 3.8 g/dL (3.5-5.2); Alkaline Phosphatase 109 U/L (40-130); Anion Gap 14.7 (5-19); Aspartate Amino Transferase 10 U/L (0-40); Blood Urea Nitrogen 33 mg/dL (8-23); Calcium 8.8 mg/dL (8.5-10.5); Carbon Dioxide 23 mmol/L (22-29); Chloride 107 mmol/L (98-107); Glucose 132 mg/dL (65-115); Osmolality Calculated 301 mOsm/kg (285-295); Potassium 3.7 mmol/L (3.5-5.1); Sodium 141 mmol/L (136-145); Testosterone Total 2.5 ng/dL (193-740); Total Bilirubin 0.9 mg/dL (0.15-1.2); Total Protein 6.8 g/dL (6.6-8.7)
[2022-10-04] MEDS: leuprolide 22.5 mg Kit IM (14:06)
[2022-10-16 07:49] VITALS: BP 168/74; PULSE 80; RESP 18; TEMP 36.6; O2SAT 95
[2022-10-16 08:23] LABS: Anion Gap 12.2 (5-19); Blood Urea Nitrogen 23 mg/dL (8-23); Calcium 8.8 mg/dL (8.5-10.5); Carbon Dioxide 25 mmol/L (22-29); Chloride 107 mmol/L (98-107); Glucose 135 mg/dL (65-115); Osmolality Calculated 296 mOsm/kg (285-295); Potassium 4.2 mmol/L (3.5-5.1); Sodium 140 mmol/L (136-145)
== END 2022-10-18 23:59 | disposition home or self-care (01) ==
PROVIDERS: Internal Medicine Medical Oncology; Nurse Practitioner Family; PCP Family Medicine; Visit Provider Internal Medicine Hematology & Oncology
DX: C61 Malignant neoplasm of prostate (principal); C77.5 Secondary and unspecified malignant neoplasm of intrapelvic lymph nodes
CPT/HCPCS: 36415; 80048; 80053; 84153; 84403; 85025; 96402; 99214; J9217

== ENCOUNTER 2022-12-27 11:44 | Oncology outpatient (recurring) (ONCR) | payer MEDICARE, MEDICAID, SELFPAY ==
[2022-12-27 11:55] VITALS: BP 142/82; PULSE 85; RESP 18; TEMP 36.8; O2SAT 94
[2022-12-27 12:15] LABS: Basophils # 0.1 10^3/uL (0.0-0.1); Eosinophils # 0.3 10^3/uL (0.0-0.8); Hematocrit 36.7 % (37-53); Lymphocytes # 2.1 10^3/uL (0.8-4.8); Lymphocytes % 30.1 %; Mean Corpuscular HGB Conc 33.8 g/dL (30-55); Mean Corpuscular Hemoglobin 31.6 pg (27-33); Mean Corpuscular Volume 93.4 fl (82-101); Mean Platelet Volume 8.7 fL (7.4-10.4); Monocytes # 0.7 10^3/uL (0.2-0.9); Monocytes % 9.7 %; Neutrophils # 3.82 10^3/uL (1.8-7.7); Neutrophils % 54.8 %; Nucleated Red Blood Cells % 0 %; Platelet Count 238 10^3/cmm (157-399); Red Blood Count 3.93 10^6/uL (3.85-5.65); White Blood Count 6.98 10^3/uL (3.29-11.43)
[2022-12-27 12:48] LABS: Alanine Aminotransferase 10 U/L (0-41); Albumin Level 3.8 g/dL (3.5-5.2); Alkaline Phosphatase 123 U/L (40-130); Anion Gap 13.9 (5-19); Aspartate Amino Transferase 13 U/L (0-40); Blood Urea Nitrogen 24 mg/dL (8-23); Calcium 9.4 mg/dL (8.5-10.5); Carbon Dioxide 21 mmol/L (22-29); Chloride 108 mmol/L (98-107); Globulin 2.7 g/dL (1.3-4.6); Glucose 110 mg/dL (65-115); Osmolality Calculated 293 mOsm/kg (285-295); Potassium 3.9 mmol/L (3.5-5.1); Prostate Specific Antigen 0.995 ng/mL (0-4); Sodium 139 mmol/L (136-145); Testosterone Total 2.5 ng/dL (193-740); Total Bilirubin 0.8 mg/dL (0.15-1.2); Total Protein 6.5 g/dL (6.6-8.7)
[2022-12-27 12:50] LABS: Creatinine Clr Calc Pharmacy 44.5295
[2022-12-27] MEDS: leuprolide 22.5 mg Kit IM (14:08)
== END 2023-01-17 23:59 | disposition home or self-care (01) ==
LOC: ONCMED 11:45
PROVIDERS: Nurse Practitioner Family; PCP Family Medicine; Visit Provider Internal Medicine Medical Oncology
DX: C61 Malignant neoplasm of prostate (principal); C77.8 Secondary and unspecified malignant neoplasm of lymph nodes of multiple regions; Z79.52 Long term (current) use of systemic steroids; Z79.818 Long term (current) use of other agents affecting estrogen receptors and estrogen levels; Z79.899 Other long term (current) drug therapy
CPT/HCPCS: 80053; 84153; 84403; 85025; 96402; 99214; J9217

== ENCOUNTER 2023-01-14 07:40 | Outpatient (CLI) | payer MEDICARE, MEDICAID, SELFPAY ==
--- NOTE | 2023-01-14 08:00 | NM_ITS ---
WS: [id number] NUCLEAR MEDICINE BONE SCAN Radiopharmaceutical: 24.4 Tc-99m MDP mCi IV Injection site: Antecubital Postinjection imaging delay: 1 hr CLINICAL INFORMATION: prostate cancer COMPARISON: 2020 FINDINGS: Bone lesions: There are no osseous lesions suspicious for metastatic disease. Soft tissue contours: Normal. Kidneys: Normal. Other findings: Degenerative type uptake involving both AC joints and both knees. Punctate uptake involving 2 lower RIGHT anterior ribs likely due to trauma. Dilated LEFT renal collecting system unchanged since the prior CT 09/03/2021 IMPRESSION: No evidence of osseous metastatic disease.
== END 2023-01-14 07:41 | disposition home or self-care (01) ==
PROVIDERS: PCP Family Medicine; Visit Provider Internal Medicine Medical Oncology
DX: C77.2 Secondary and unspecified malignant neoplasm of intra-abdominal lymph nodes (principal); C61 Malignant neoplasm of prostate
CPT/HCPCS: 78306; A9561

== ENCOUNTER 2023-01-23 13:49 | Oncology outpatient (recurring) (ONCR) | payer MEDICARE, MEDICAID, SELFPAY | END 2023-02-17 23:59 | disposition home or self-care (01) | PROVIDERS: PCP Family Medicine; Visit Provider Internal Medicine Hematology & Oncology | DX: C61 Malignant neoplasm of prostate (principal); C77.8 Secondary and unspecified malignant neoplasm of lymph nodes of multiple regions; Z79.52 Long term (current) use of systemic steroids; Z79.818 Long term (current) use of other agents affecting estrogen receptors and estrogen levels; Z79.899 Other long term (current) drug therapy | CPT/HCPCS: 99214 ==

== ENCOUNTER 2023-04-25 11:37 | Oncology outpatient (recurring) (ONCR) | payer MEDICARE, MEDICAID, SELFPAY ==
[2023-04-25 12:16] LABS: Basophils # 0.1 10^3/uL (0.0-0.1); Basophils % 0.7 %; Eosinophils # 0.1 10^3/uL (0.0-0.8); Eosinophils % 1.2 %; Hematocrit 36.5 % (37-53); Lymphocytes # 1.3 10^3/uL (0.8-4.8); Lymphocytes % 19.6 %; Mean Corpuscular HGB Conc 34.8 g/dL (30-55); Mean Corpuscular Hemoglobin 31.7 pg (27-33); Mean Platelet Volume 8.6 fL (7.4-10.4); Monocytes # 0.4 10^3/uL (0.2-0.9); Monocytes % 5.2 %; Neutrophils % 72.9 %; Nucleated Red Blood Cells % 0 %; Platelet Count 218 10^3/cmm (157-399); Red Blood Count 4.01 10^6/uL (3.85-5.65); Red Cell Distribution Width 12.3 % (12.1-15.1); White Blood Count 6.73 10^3/uL (3.29-11.43)
[2023-04-25 12:58] LABS: Alanine Aminotransferase 8 U/L (0-41); Albumin Level 3.8 g/dL (3.5-5.2); Alkaline Phosphatase 113 U/L (40-130); Anion Gap 15.1 (5-19); Aspartate Amino Transferase 11 U/L (0-40); Blood Urea Nitrogen 23 mg/dL (8-23); Calcium 9.1 mg/dL (8.5-10.5); Carbon Dioxide 23 mmol/L (22-29); Chloride 108 mmol/L (98-107); Globulin 3.1 g/dL (1.3-4.6); Glucose 124 mg/dL (65-115); Osmolality Calculated 299 mOsm/kg (285-295); Potassium 4.1 mmol/L (3.5-5.1); Prostate Specific Antigen 0.991 ng/mL (0-4); Sodium 142 mmol/L (136-145); Testosterone Total 2.5 ng/dL (193-740); Total Bilirubin 0.6 mg/dL (0.15-1.2); Total Protein 6.9 g/dL (6.6-8.7)
[2023-04-25] MEDS: leuprolide 22.5 mg Kit IM (14:47)
== END 2023-05-19 23:59 | disposition home or self-care (01) ==
PROVIDERS: Internal Medicine Medical Oncology; PCP Family Medicine; Visit Provider Internal Medicine Hematology & Oncology
DX: C61 Malignant neoplasm of prostate (principal); C77.5 Secondary and unspecified malignant neoplasm of intrapelvic lymph nodes; Z79.52 Long term (current) use of systemic steroids; Z79.818 Long term (current) use of other agents affecting estrogen receptors and estrogen levels; Z79.899 Other long term (current) drug therapy; Z51.11 Encounter for antineoplastic chemotherapy; Z87.891 Personal history of nicotine dependence
CPT/HCPCS: 36415; 80053; 84153; 84403; 85025; 96402; 99214; J9217

== ENCOUNTER 2023-07-18 11:23 | Oncology outpatient (recurring) (ONCR) | payer MEDICARE, MEDICAID, SELFPAY ==
[2023-07-18 11:52] LABS: Basophils # 0.1 10^3/uL (0.0-0.1); Basophils % 0.9 %; Eosinophils # 0.3 10^3/uL (0.0-0.8); Eosinophils % 3.7 %; Hematocrit 36.3 % (37-53); Lymphocytes # 2.7 10^3/uL (0.8-4.8); Mean Corpuscular HGB Conc 34.4 g/dL (30-55); Mean Corpuscular Hemoglobin 31.4 pg (27-33); Mean Corpuscular Volume 91.2 fl (82-101); Mean Platelet Volume 8.9 fL (7.4-10.4); Monocytes # 0.7 10^3/uL (0.2-0.9); Monocytes % 9.8 %; Neutrophils # 3.23 10^3/uL (1.8-7.7); Neutrophils % 46.3 %; Nucleated Red Blood Cells % 0 %; Platelet Count 237 10^3/cmm (157-399); Red Blood Count 3.98 10^6/uL (3.85-5.65); Red Cell Distribution Width 12.2 % (12.1-15.1); White Blood Count 6.97 10^3/uL (3.29-11.43)
[2023-07-18 12:14] LABS: Alanine Aminotransferase 10 U/L (0-41); Albumin Level 3.8 g/dL (3.5-5.2); Alkaline Phosphatase 118 U/L (40-130); Anion Gap 14.8 (5-19); Aspartate Amino Transferase 13 U/L (0-40); Blood Urea Nitrogen 20 mg/dL (8-23); Calcium 9.4 mg/dL (8.5-10.5); Carbon Dioxide 20 mmol/L (22-29); Chloride 109 mmol/L (98-107); Globulin 3.3 g/dL (1.3-4.6); Glucose 134 mg/dL (65-115); Osmolality Calculated 295 mOsm/kg (285-295); Potassium 3.8 mmol/L (3.5-5.1); Prostate Specific Antigen 0.779 ng/mL (0-4); Sodium 140 mmol/L (136-145); Testosterone Total 2.5 ng/dL (193-740); Total Bilirubin 0.9 mg/dL (0.15-1.2); Total Protein 7.1 g/dL (6.6-8.7)
[2023-07-18] MEDS: leuprolide 22.5 mg Kit IM (14:22)
== END 2023-07-19 23:59 | disposition home or self-care (01) ==
PROVIDERS: Internal Medicine Medical Oncology; PCP Family Medicine; Visit Provider Internal Medicine Hematology & Oncology
DX: C61 Malignant neoplasm of prostate (principal); C77.5 Secondary and unspecified malignant neoplasm of intrapelvic lymph nodes; Z79.52 Long term (current) use of systemic steroids; Z79.818 Long term (current) use of other agents affecting estrogen receptors and estrogen levels; Z79.899 Other long term (current) drug therapy; Z53.9 Procedure and treatment not carried out, unspecified reason; Z51.12 Encounter for antineoplastic immunotherapy
CPT/HCPCS: 36415; 80053; 84153; 84403; 85025; 96402; 99214; J9217

== ENCOUNTER 2023-10-10 11:15 | Oncology outpatient (recurring) (ONCR) | payer MEDICARE, MEDICAID, SELFPAY ==
[2023-10-10 11:43] LABS: Basophils # 0.1 10^3/uL (0.0-0.1); Basophils % 0.8 %; Eosinophils # 0.3 10^3/uL (0.0-0.8); Eosinophils % 4.7 %; Lymphocytes # 2.6 10^3/uL (0.8-4.8); Lymphocytes % 39.2 %; Mean Corpuscular HGB Conc 33.9 g/dL (30-55); Mean Corpuscular Hemoglobin 31.2 pg (27-33); Mean Corpuscular Volume 91.8 fl (82-101); Mean Platelet Volume 8.7 fL (7.4-10.4); Monocytes # 0.6 10^3/uL (0.2-0.9); Monocytes % 9.5 %; Neutrophils # 3.03 10^3/uL (1.8-7.7); Neutrophils % 45.5 %; Nucleated Red Blood Cells % 0 %; Platelet Count 229 10^3/cmm (157-399); Red Blood Count 4.14 10^6/uL (3.85-5.65); Red Cell Distribution Width 12.3 % (12.1-15.1); White Blood Count 6.64 10^3/uL (3.29-11.43)
[2023-10-10 12:17] LABS: Alanine Aminotransferase 6 U/L (0-41); Albumin Level 3.9 g/dL (3.5-5.2); Alkaline Phosphatase 116 U/L (40-130); Anion Gap 16.2 (5-19); Aspartate Amino Transferase 17 U/L (0-40); Blood Urea Nitrogen 18 mg/dL (8-23); Calcium 9.1 mg/dL (8.5-10.5); Carbon Dioxide 22 mmol/L (22-29); Chloride 110 mmol/L (98-107); Globulin 3.2 g/dL (1.3-4.6); Glucose 112 mg/dL (65-115); Osmolality Calculated 301 mOsm/kg (285-295); Potassium 4.2 mmol/L (3.5-5.1); Prostate Specific Antigen 0.969 ng/mL (0-4); Sodium 144 mmol/L (136-145); Testosterone Total 2.5 ng/dL (193-740); Total Bilirubin 1.2 mg/dL (0.15-1.2); Total Protein 7.1 g/dL (6.6-8.7)
[2023-10-10] MEDS: leuprolide 22.5 mg Kit IM (14:00)
== END 2023-10-19 23:59 | disposition home or self-care (01) ==
PROVIDERS: Nurse Practitioner Family; PCP Family Medicine; Visit Provider Internal Medicine Medical Oncology
DX: C61 Malignant neoplasm of prostate (principal); C77.5 Secondary and unspecified malignant neoplasm of intrapelvic lymph nodes; Z79.52 Long term (current) use of systemic steroids; Z79.818 Long term (current) use of other agents affecting estrogen receptors and estrogen levels; Z79.899 Other long term (current) drug therapy; Z51.11 Encounter for antineoplastic chemotherapy
CPT/HCPCS: 36415; 80053; 84153; 84403; 85025; 96402; 99214; J9217

== ENCOUNTER 2024-01-02 10:49 | Oncology outpatient (recurring) (ONCR) | payer MEDICARE, MEDICAID, SELFPAY ==
[2024-01-02 11:44] LABS: Basophils % 0.5 %; Eosinophils # 0.2 10^3/uL (0.0-0.8); Eosinophils % 2.4 %; Hematocrit 35.8 % (37-53); Lymphocytes # 1.4 10^3/uL (0.8-4.8); Lymphocytes % 17.5 %; Mean Corpuscular HGB Conc 33.8 g/dL (30-55); Mean Corpuscular Hemoglobin 30.6 pg (27-33); Mean Corpuscular Volume 90.4 fl (82-101); Mean Platelet Volume 8.1 fL (7.4-10.4); Monocytes # 0.7 10^3/uL (0.2-0.9); Monocytes % 9.1 %; Neutrophils % 70.2 %; Nucleated Red Blood Cells % 0 %; Platelet Count 218 10^3/cmm (157-399); Red Blood Count 3.96 10^6/uL (3.85-5.65); White Blood Count 7.83 10^3/uL (3.29-11.43)
[2024-01-02 12:12] LABS: Alanine Aminotransferase 6 U/L (0-41); Albumin Level 3.9 g/dL (3.5-5.2); Alkaline Phosphatase 124 U/L (40-130); Anion Gap 13.1 (5-19); Aspartate Amino Transferase 11 U/L (0-40); Blood Urea Nitrogen 20 mg/dL (8-23); Calcium 8.5 mg/dL (8.5-10.5); Carbon Dioxide 24 mmol/L (22-29); Chloride 107 mmol/L (98-107); Glucose 97 mg/dL (65-115); Osmolality Calculated 293 mOsm/kg (285-295); Potassium 4.1 mmol/L (3.5-5.1); Sodium 140 mmol/L (136-145); Testosterone Total 2.5 ng/dL (193-740); Total Bilirubin 0.8 mg/dL (0.15-1.2); Total Protein 6.9 g/dL (6.6-8.7)
[2024-01-02 12:15] LABS: Creatinine Clr Calc Pharmacy 44.5708
[2024-01-02] MEDS: leuprolide 22.5 mg Kit IM (13:26)
== END 2024-01-18 23:59 | disposition home or self-care (01) ==
PROVIDERS: Nurse Practitioner Family; PCP Family Medicine; Visit Provider Internal Medicine Medical Oncology
DX: C61 Malignant neoplasm of prostate (principal); C77.8 Secondary and unspecified malignant neoplasm of lymph nodes of multiple regions; Z79.52 Long term (current) use of systemic steroids; Z79.818 Long term (current) use of other agents affecting estrogen receptors and estrogen levels; Z79.899 Other long term (current) drug therapy; Z51.11 Encounter for antineoplastic chemotherapy
CPT/HCPCS: 36415; 80053; 84153; 84403; 85025; 96401; 99214; J9217

== ENCOUNTER 2024-03-26 11:53 | Oncology outpatient (recurring) (ONCR) | payer MEDICARE, MEDICAID, SELFPAY ==
[2024-03-26 12:19] LABS: Basophils # 0.1 10^3/uL (0.0-0.1); Basophils % 0.8 %; Eosinophils # 0.3 10^3/uL (0.0-0.8); Hematocrit 38.7 % (37-53); Lymphocytes # 2.9 10^3/uL (0.8-4.8); Lymphocytes % 37.7 %; Mean Corpuscular HGB Conc 33.6 g/dL (30-55); Mean Corpuscular Volume 92.4 fl (82-101); Mean Platelet Volume 8.7 fL (7.4-10.4); Monocytes # 0.6 10^3/uL (0.2-0.9); Monocytes % 7.3 %; Neutrophils # 3.83 10^3/uL (1.8-7.7); Neutrophils % 49.9 %; Nucleated Red Blood Cells % 0 %; Platelet Count 248 10^3/cmm (157-399); Red Blood Count 4.19 10^6/uL (3.85-5.65); Red Cell Distribution Width 12.6 % (12.1-15.1); White Blood Count 7.67 10^3/uL (3.29-11.43)
[2024-03-26 12:49] LABS: Alanine Aminotransferase 6 U/L (0-41); Albumin Level 3.9 g/dL (3.5-5.2); Alkaline Phosphatase 132 U/L (40-130); Anion Gap 16.9 (5-19); Aspartate Amino Transferase 17 U/L (0-40); Blood Urea Nitrogen 18 mg/dL (8-23); Carbon Dioxide 22 mmol/L (22-29); Chloride 107 mmol/L (98-107); Globulin 3.5 g/dL (1.3-4.6); Glucose 121 mg/dL (65-115); Osmolality Calculated 297 mOsm/kg (285-295); Potassium 3.9 mmol/L (3.5-5.1); Sodium 142 mmol/L (136-145); Total Bilirubin 1.1 mg/dL (0.15-1.2); Total Protein 7.4 g/dL (6.6-8.7)
[2024-03-26 12:51] LABS: Testosterone Total < 2.5 ng/dL (193-740)
[2024-03-26] MEDS: leuprolide 22.5 mg Kit IM (13:41)
[2024-03-26 13:47] VITALS: BP 176/71; PULSE 86; RESP 18; TEMP 36.6; O2SAT 96
== END 2024-04-17 23:59 | disposition home or self-care (01) ==
PROVIDERS: Nurse Practitioner Family; PCP Family Medicine; Visit Provider Internal Medicine
DX: Z51.11 Encounter for antineoplastic chemotherapy (principal); C61 Malignant neoplasm of prostate; R59.1 Generalized enlarged lymph nodes; Z79.52 Long term (current) use of systemic steroids; Z79.818 Long term (current) use of other agents affecting estrogen receptors and estrogen levels; Z79.899 Other long term (current) drug therapy; Z87.891 Personal history of nicotine dependence
CPT/HCPCS: 36415; 80053; 84153; 84403; 85025; 96402; 99213; J9217

== ENCOUNTER 2024-06-19 08:20 | Oncology outpatient (recurring) (ONCR) | payer MEDICARE, MEDICAID, SELFPAY ==
[2024-06-19 08:38] LABS: Basophils # 0.1 10^3/uL (0.0-0.1); Basophils % 0.7 %; Eosinophils # 0.2 10^3/uL (0.0-0.8); Hematocrit 39.5 % (37-53); Lymphocytes # 2.5 10^3/uL (0.8-4.8); Lymphocytes % 28.1 %; Mean Corpuscular HGB Conc 32.7 g/dL (30-55); Mean Corpuscular Hemoglobin 31.3 pg (27-33); Mean Corpuscular Volume 95.9 fl (82-101); Mean Platelet Volume 8.5 fL (7.4-10.4); Monocytes # 0.5 10^3/uL (0.2-0.9); Monocytes % 5.2 %; Neutrophils # 5.69 10^3/uL (1.8-7.7); Neutrophils % 63.8 %; Nucleated Red Blood Cells % 0 %; Platelet Count 217 10^3/cmm (157-399); Red Blood Count 4.12 10^6/uL (3.85-5.65); Red Cell Distribution Width 12.3 % (12.1-15.1); White Blood Count 8.92 10^3/uL (3.29-11.43)
[2024-06-19 09:07] LABS: Alanine Aminotransferase 6 U/L (0-41); Albumin Level 4.1 g/dL (3.5-5.2); Alkaline Phosphatase 119 U/L (40-130); Anion Gap 14.5 (5-19); Aspartate Amino Transferase 10 U/L (0-40); Blood Urea Nitrogen 46 mg/dL (8-23); Calcium 9.2 mg/dL (8.5-10.5); Carbon Dioxide 21 mmol/L (22-29); Chloride 106 mmol/L (98-107); Creatinine Clr Calc Pharmacy 35.5431; Globulin 3.3 g/dL (1.3-4.6); Glucose 102 mg/dL (65-115); Osmolality Calculated 296 mOsm/kg (285-295); Potassium 4.5 mmol/L (3.5-5.1); Sodium 137 mmol/L (136-145); Total Bilirubin 0.6 mg/dL (0.15-1.2); Total Protein 7.4 g/dL (6.6-8.7)
[2024-06-19 09:14] LABS: Testosterone Total < 2.5 ng/dL (193-740)
[2024-06-19 09:15] LABS: Lactate Dehydrogenase 147 U/L (135-225)
[2024-06-19] MEDS: leuprolide 22.5 mg Kit IM (10:22)
== END 2024-07-18 23:59 | disposition home or self-care (01) ==
LOC: ONCMED 08:20
PROVIDERS: PCP Family Medicine; Visit Provider Internal Medicine
DX: Z51.11 Encounter for antineoplastic chemotherapy (principal); C61 Malignant neoplasm of prostate; C77.5 Secondary and unspecified malignant neoplasm of intrapelvic lymph nodes; R03.0 Elevated blood-pressure reading, without diagnosis of hypertension; Z87.891 Personal history of nicotine dependence; Z79.52 Long term (current) use of systemic steroids; Z79.899 Other long term (current) drug therapy
CPT/HCPCS: 36415; 80053; 83615; 84153; 84403; 85025; 96402; 99214; J9217

== ENCOUNTER 2024-09-10 12:36 | Oncology outpatient (recurring) (ONCR) | payer MEDICARE, MEDICAID, SELFPAY ==
[2024-09-10 13:09] LABS: Hematocrit 35.0 % (37-53); Hemoglobin 12.10 g/dL (11.27-16.99); Mean Corpuscular HGB Conc 34.6 g/dL (30-55); Mean Corpuscular Hemoglobin 31.3 pg (27-33); Mean Corpuscular Volume 90.4 fl (82-101); Nucleated Red Blood Cells % 0 %; Platelet Count 208 10^3/cmm (157-399); Red Blood Count 3.87 10^6/uL (3.85-5.65); White Blood Count 7.36 10^3/uL (3.29-11.43)
[2024-09-10 13:41] LABS: Alanine Aminotransferase 6 U/L (0-41); Albumin Level 3.6 g/dL (3.5-5.2); Alkaline Phosphatase 114 U/L (40-130); Anion Gap 15.6 (5-19); Aspartate Amino Transferase 12 U/L (0-40); Blood Urea Nitrogen 18 mg/dL (8-23); Calcium 8.8 mg/dL (8.5-10.5); Carbon Dioxide 22 mmol/L (22-29); Chloride 107 mmol/L (98-107); Globulin 3.0 g/dL (1.3-4.6); Glucose 130 mg/dL (65-115); Osmolality Calculated 296 mOsm/kg (285-295); Potassium 3.6 mmol/L (3.5-5.1); Prostate Specific Antigen 1.070 ng/mL (0-4); Sodium 141 mmol/L (136-145); Total Protein 6.6 g/dL (6.6-8.7)
[2024-09-10] MEDS: leuprolide 22.5 mg Kit IM (15:17)
== END 2024-09-17 23:59 | disposition home or self-care (01) ==
PROVIDERS: Nurse Practitioner Family; PCP Family Medicine; Visit Provider Internal Medicine
DX: Z51.11 Encounter for antineoplastic chemotherapy (principal); C61 Malignant neoplasm of prostate; N13.9 Obstructive and reflux uropathy, unspecified; I10 Essential (primary) hypertension; Z87.891 Personal history of nicotine dependence; Z79.899 Other long term (current) drug therapy; Z79.818 Long term (current) use of other agents affecting estrogen receptors and estrogen levels
CPT/HCPCS: 36415; 80053; 84153; 84403; 85025; 96402; 99213; J9217

== ENCOUNTER 2024-12-10 12:55 | Oncology outpatient (recurring) (ONCR) | payer MEDICARE, MEDICAID, SELFPAY ==
[2024-12-10 13:15] LABS: Hematocrit 36.8 % (37-53); Hemoglobin 12.70 g/dL (11.27-16.99); Mean Corpuscular HGB Conc 34.5 g/dL (30-55); Mean Corpuscular Hemoglobin 31.3 pg (27-33); Mean Corpuscular Volume 90.6 fl (82-101); Nucleated Red Blood Cells % 0 %; Platelet Count 253 10^3/cmm (157-399); Red Blood Count 4.06 10^6/uL (3.85-5.65); White Blood Count 7.70 10^3/uL (3.29-11.43)
[2024-12-10 13:45] LABS: Alanine Aminotransferase 10 U/L (0-41); Albumin Level 4.1 g/dL (3.5-5.2); Alkaline Phosphatase 180 U/L (40-130); Anion Gap 15.5 (5-19); Aspartate Amino Transferase 23 U/L (0-40); Blood Urea Nitrogen 18 mg/dL (8-23); Calcium 9.3 mg/dL (8.5-10.5); Carbon Dioxide 25 mmol/L (22-29); Chloride 104 mmol/L (98-107); Creatinine Clr Calc Pharmacy 56.0737; Globulin 3.5 g/dL (1.3-4.6); Glucose 107 mg/dL (65-115); Osmolality Calculated 294 mOsm/kg (285-295); Potassium 3.5 mmol/L (3.5-5.1); Prostate Specific Antigen 1.420 ng/mL (0-4); Sodium 141 mmol/L (136-145); Total Protein 7.6 g/dL (6.6-8.7)
[2024-12-10] MEDS: leuprolide 22.5 mg Kit IM (14:07)
== END 2024-12-18 23:59 | disposition home or self-care (01) ==
PROVIDERS: PCP Family Medicine; Visit Provider Internal Medicine
DX: Z53.9 Procedure and treatment not carried out, unspecified reason; Z51.11 Encounter for antineoplastic chemotherapy; C61 Malignant neoplasm of prostate; C77.5 Secondary and unspecified malignant neoplasm of intrapelvic lymph nodes; N13.9 Obstructive and reflux uropathy, unspecified; I10 Essential (primary) hypertension; Z87.891 Personal history of nicotine dependence; Z79.899 Other long term (current) drug therapy; Z79.818 Long term (current) use of other agents affecting estrogen receptors and estrogen levels; Z79.52 Long term (current) use of systemic steroids
CPT/HCPCS: 36415; 80053; 84153; 84403; 85025; 96372; 99213; J9217